=== PATIENT | female | born 1940 | race Caucasian/White ===

== ENCOUNTER → 2017-04-04 | Day surgery (SDC) | payer OTHER, MEDICARE ==
--- NOTE | 2017-04-03 12:47 | Diagnostic Imaging Report ---
PROCEDURE: X-RAY CHEST, TWO VIEWS COMPARISON: None. INDICATIONS: PREOPERATIVE CHEST XRAY FOR LEFT ELBOW SURGERY FINDINGS: The lungs are hyperinflated with flattening of the hemidiaphragms and increased AP diameter of the chest. Biapical pleural-parenchymal scar. No consolidation, pleural effusion, or pneumothorax. Tortuosity and atherosclerotic calcification of the thoracic aorta. Normal heart size. No pulmonary edema. No acute osseous abnormality. CONCLUSION: Pulmonary hyperinflation compatible with COPD. Biapical scar. No acute cardiopulmonary abnormality. Dictated by: Nikko Aranda M.D. on 04/03/2017 at 12:55 Electronically approved by: Nikko Aranda M.D. on 04/03/2017 at 12:55
[2017-04-03 12:56] LABS: BASOPHILS % 0.1 % (0.0-1.0); EOSINOPHILS % 0.5 % (0.0-6.0); HEMATOCRIT 34.4 % (34.2-44.1); HEMOGLOBIN 11.3 g/dL (12.0-16.0); LYMPHOCYTES # (AUTO) 1.2 (1.0-3.2); LYMPHOCYTES % 15.5 % (18.0-39.1); MEAN CORPUSCULAR HEMOGLOBIN 29.6 pg (28-32); MEAN CORPUSCULAR HGB CONC 32.8 g/dL (31-35); MEAN CORPUSCULAR VOLUME 90.1 fL (81-99); MONOCYTES # (AUTO) 0.8 (0.2-0.8); MONOCYTES % 9.9 % (4.4-11.3); NEUTROPHILS # (AUTO) 5.6 (2.1-6.9); NEUTROPHILS % 73.7 % (38.7-80.0); PLATELET COUNT 142 x10e3/uL (140-360); RED BLOOD COUNT 3.82 x10e6/uL (3.6-5.1); RED CELL DISTRIBUTION WIDTH 13.7 % (11.7-14.4)
[~2017-04-04] MED LIST: ASPIRIN325 MG PO; BACITRACIN 50,000 UNIT VIAL ONE; BUPIVACAINE 0.25%/EPI 30ML SDV INJ ONE; CLINDAMYCIN PHOS 900MG/ D5W 50 50 ML IV ONE; CRESTOR10 MG PO; DEXAMETHASONE SOD PHOS INJ 4 MG/ML VIAL IV ONE; EPHEDRINE SULFATE INJ 50 MG/10 ML SYR IV ONE; EPINEPHRINE HCL INJ 1 MG/ML AMP ONE; FENTANYL CITRATE/PF 100MCG/2 ML INJ ONE; LIDOCAINE 2%/ EPINEPHRINE 20ML MDV ONE; LIDOCAINE HCL 2% LOCAL INJ 5 ML SDV VIAL INJ ONE; METOPROLOL SUCC25 MG PO; MIDAZOLAM HCL 2 MG/2 ML VIAL ONE; MUPIROCIN 2% OINT 22 GM TUBE ONE; NORCO 10-325 T1 EACH PO; ONDANSETRON HCL INJ 2 MG/ML VIAL IV ONE; PRENATAL TABLE1 EAC1 PO; PROPOFOL IV EMULSION 10 MG/ML 20 ML VIAL IV ONE; ROPIVACAINE 0.5% 5 MG/ML 30 ML SDV ONE; SEVOFLURANE INHAL SOLN 250 ML PEN BTL INH ONE; ULTRAM50 MG PO
--- NOTE | 2017-04-04 13:36 | Operative Report ---
DATE OF PROCEDURE: April 04, 2017 PREOPERATIVE DIAGNOSIS: Left elbow olecranon process fracture. POSTOPERATIVE DIAGNOSIS: Left elbow olecranon process fracture. PROCEDURE: Open reduction and internal fixation left elbow olecranon process. ASSEMBLY LINE ROBOT OPERATOR: Gurpreet Zhao PA-C The patient was brought to the operating room for induction of anesthesia. Throughout this case, my PA's assistance was necessary for retraction of soft tissue and positioning of the extremity. This allows for efficient and technically successful execution of the operation and is considered medically necessary. INDICATIONS: The patient is a medically frail 76-year-old lady who has a markedly displaced left elbow olecranon process fracture. The findings and options have been discussed. Particular attention has been paid to discussing her soft tissue. She has marked bruising and thin skin. She is very thin and frail. She smokes a pack a day. However, the olecranon process is severely displaced. We have given this some time for the soft tissue to improve. We have encouraged Ensure and ceasing from smoking. She states she understands she is at high risk for soft tissue problems. She wishes to proceed with the surgery. DESCRIPTION OF PROCEDURE: The patient was brought to the operating room and placed under general anesthetic. She received prophylactic antibiotics in the holding area. She was positioned in the right lateral decubitus position with a beanbag. Her left upper extremity was prepped and draped in a sterile manner. A preoperative time-out was performed. The extremity was exsanguinated and a proximal tourniquet was inflated to 250 mmHg. An incision over the posterior aspect was made. A limited soft tissue dissection was performed to expose the fracture. The soft tissue was very carefully handled throughout the case. The fracture site was cleared of small amount of bone fragments and fracture hematoma. The joint was inspected and cleared of any loose bodies. A gentle reduction was performed with a reduction clamp. Jeffrey Rosas and DATE OF PROCEDURE: April 04, 2017 Nephew precontoured left-sided olecranon plate was placed over the fracture. With the reduction held in place, this was fixed with a combination of locking and compression screws. Intraoperative x-rays confirmed nice reduction of the fracture and positioning of the hardware. The wound was further irrigated. A few subcuticular Vicryl stitches were used to re-approximate the soft tissue. Multiple interrupted nylon stitches in combination with Mastisol and Steri-Strips were used to close the skin. A well-padded posterior splint was applied. She was extubated and transported to the recovery room in stable condition. Blood loss was minimal. The only blood loss was really the fracture hematoma. All needle and sponge counts were correct at the end of the surgery. Job#: [id number] AUDRA
== END | disposition home or self-care (01) ==
LOC: OR 07:09
PROVIDERS: ATTEND Specialist
DX: S52.032A Displaced fracture of olecranon process with intraarticular extension of left ulna, initial encounter for closed fracture (principal); I10 Essential (primary) hypertension; J44.9 Chronic obstructive pulmonary disease, unspecified; F17.210 Nicotine dependence, cigarettes, uncomplicated; W19.XXXA Unspecified fall, initial encounter; Y92.009 Unspecified place in unspecified non-institutional (private) residence as the place of occurrence of the external cause; Z01.810 Encounter for preprocedural cardiovascular examination; Z01.812 Encounter for preprocedural laboratory examination; Z01.818 Encounter for other preprocedural examination; Z79.82 Long term (current) use of aspirin
CPT/HCPCS: 24685; 36415; 71020; 85025; 93005; C1713 ×5; J0171; J1100; J2001 ×2; J2250; J2405; J2795; 76000

== ENCOUNTER 2017-06-08 11:51 | Outpatient (RCR) | payer MEDICARE, OTHER ==
[~2017-06-08 11:51] MED LIST changes: -BACITRACIN 50,000 UNIT VIAL ONE; -BUPIVACAINE 0.25%/EPI 30ML SDV INJ ONE; -CLINDAMYCIN PHOS 900MG/ D5W 50 50 ML IV ONE; -DEXAMETHASONE SOD PHOS INJ 4 MG/ML VIAL IV ONE; -EPHEDRINE SULFATE INJ 50 MG/10 ML SYR IV ONE; -EPINEPHRINE HCL INJ 1 MG/ML AMP ONE; -FENTANYL CITRATE/PF 100MCG/2 ML INJ ONE; -LIDOCAINE 2%/ EPINEPHRINE 20ML MDV ONE; -LIDOCAINE HCL 2% LOCAL INJ 5 ML SDV VIAL INJ ONE; -MIDAZOLAM HCL 2 MG/2 ML VIAL ONE; -MUPIROCIN 2% OINT 22 GM TUBE ONE; -ONDANSETRON HCL INJ 2 MG/ML VIAL IV ONE; -PROPOFOL IV EMULSION 10 MG/ML 20 ML VIAL IV ONE; -ROPIVACAINE 0.5% 5 MG/ML 30 ML SDV ONE; -SEVOFLURANE INHAL SOLN 250 ML PEN BTL INH ONE
== END 2017-06-14 ==
LOC: OT 11:51
PROVIDERS: ATTEND Specialist
DX: S52.032D Displaced fracture of olecranon process with intraarticular extension of left ulna, subsequent encounter for closed fracture with routine healing (principal)
CPT/HCPCS: 97010 ×5; 97110 ×6; 97139 ×2; 97165; G8987; G8988

== ENCOUNTER → 2017-12-26 | Day surgery (SDC) | payer MEDICARE, OTHER ==
[2017-12-25 09:30] LABS: BASOPHILS % 0.2 % (0.0-1.0); EOSINOPHILS # (AUTO) 0.1 (0.0-0.4); EOSINOPHILS % 1.5 % (0.0-6.0); HEMATOCRIT 44.1 % (34.2-44.1); HEMOGLOBIN 14.3 g/dL (12.0-16.0); LYMPHOCYTES # (AUTO) 1.8 (1.0-3.2); LYMPHOCYTES % 27.4 % (18.0-39.1); MEAN CORPUSCULAR HEMOGLOBIN 30.2 pg (28-32); MEAN CORPUSCULAR HGB CONC 32.4 g/dL (31-35); MEAN CORPUSCULAR VOLUME 93.2 fL (81-99); MONOCYTES # (AUTO) 0.7 (0.2-0.8); MONOCYTES % 10.1 % (4.4-11.3); NEUTROPHILS % 60.5 % (38.7-80.0); PLATELET COUNT 119 x10e3/uL (140-360); RED BLOOD COUNT 4.73 x10e6/uL (3.6-5.1); RED CELL DISTRIBUTION WIDTH 15.1 % (11.7-14.4)
[~2017-12-26] MED LIST changes: +BUPIVACAINE HCL 0.5% INJ 30 ML VIAL INJ ONE; +DESFLURANE 240 ML BTL INH ONE; +DEXAMETHASONE SOD PHOS INJ 4 MG/ML VIAL ONE; +FAMOTIDINE20 MG PO; +LIDOCAINE HCL 2% LOCAL INJ 5 ML SDV VIAL INJ ONE; +MIRTAZAPINE15 MG PO; +NEOSTIGMINE 1 MG/ML 10ML VIAL ONE; +ONDANSETRON HCL INJ 2 MG/ML VIAL ONE; +PANTOPRAZOLE SO40 MG PO; +PROPOFOL IV EMULSION 10 MG/ML 20 ML VIAL ONE; +ZOLOFT50 MG PO
[2017-12-26] MEDS: CLINDAMYCIN 600MG / 50ML 50 ML IV ONE (10:32)
[2017-12-26] MEDS: FENTANYL CITRATE/PF 100MCG/2 ML INJ ONE (12:39)
[2017-12-26 14:00] VITALS: BP 146/82
--- NOTE | 2017-12-26 15:52 | Operative Report ---
DATE OF PROCEDURE: December 26, 2017 CAPONIZER: Gurpreet Zhao PA-C. The patient was brought to the operating room for induction of anesthesia. Throughout this case, my PA's assistance was necessary for retraction of soft tissue and positioning of the extremity. This allows for efficient and technically successful execution of the operation and is considered medically necessary. PREOPERATIVE DIAGNOSIS: Complications of internal fixation, left elbow. POSTOPERATIVE DIAGNOSIS: Complications of internal fixation, left elbow. PROCEDURES: Hardware removal and irrigation debridement, left elbow. INDICATIONS: The patient is a 77-year-old lady who sustained an olecranon fracture about 8 months ago. She is very thin and does not weigh more than 90 pounds. The hardware is painful and prominent in the posterior aspect of her elbow. She has had occasional punctate draining sinus. We have discussed the findings and recommend a hardware removal with debridement. The risks and benefits were discussed. She stated she understood and wished to proceed. DESCRIPTION OF PROCEDURE: The patient was brought to the operating room and placed under general anesthetic. Her left upper extremity was prepped and draped in a sterile manner. A preoperative time out was performed. The extremity was exsanguinated and the proximal tourniquet was briefly inflated to 200 mmHg. The previous incision was opened. The hardware was easily exposed. A periosteal elevator was used to mobilize the soft tissue. All of the screws and the plate were removed. Intraoperative x-ray confirmed complete removal of hardware. The fibrinous membrane was sharply excised. The screw holes were gently debrided with a small curette. The wound was thoroughly irrigated and closed with interrupted nylon stitches. A sterile bandage was applied. She was placed into a posterior splint. She was extubated and transported to the recovery room in stable condition. Job#: [id number] ERIN
== END | disposition home or self-care (01) ==
LOC: OR 09:23
PROVIDERS: ATTEND Specialist
DX: T84.84XA Pain due to internal orthopedic prosthetic devices, implants and grafts, initial encounter (principal); T84.89XA Other specified complication of internal orthopedic prosthetic devices, implants and grafts, initial encounter; I10 Essential (primary) hypertension; I25.10 Atherosclerotic heart disease of native coronary artery without angina pectoris; R00.1 Bradycardia, unspecified; E78.00 Pure hypercholesterolemia, unspecified; F41.9 Anxiety disorder, unspecified; F17.210 Nicotine dependence, cigarettes, uncomplicated; Y83.8 Other surgical procedures as the cause of abnormal reaction of the patient, or of later complication, without mention of misadventure at the time of the procedure; Z88.0 Allergy status to penicillin; Z01.810 Encounter for preprocedural cardiovascular examination; Z01.812 Encounter for preprocedural laboratory examination; Z79.82 Long term (current) use of aspirin; Z95.5 Presence of coronary angioplasty implant and graft; Z85.3 Personal history of malignant neoplasm of breast; Z87.81 Personal history of (healed) traumatic fracture
CPT/HCPCS: 36415; 76000; 85025; 87071; 87075; 87205; 88300; 93005; J1100; J2001; J2405; J2710

== ENCOUNTER 2020-09-24 20:05 | Emergency (ER) | payer MEDICARE, OTHER ==
[~2020-09-24] VITALS: Ht 160 cm; Wt 41.3 kg
[~2020-09-24 20:05] MED LIST changes: -BUPIVACAINE HCL 0.5% INJ 30 ML VIAL INJ ONE; -DESFLURANE 240 ML BTL INH ONE; -DEXAMETHASONE SOD PHOS INJ 4 MG/ML VIAL ONE; -LIDOCAINE HCL 2% LOCAL INJ 5 ML SDV VIAL INJ ONE; -NEOSTIGMINE 1 MG/ML 10ML VIAL ONE; -ONDANSETRON HCL INJ 2 MG/ML VIAL ONE; -PROPOFOL IV EMULSION 10 MG/ML 20 ML VIAL ONE
[2020-09-24] MEDS ORDERED: DIPHTH/TETANUS/ACEL. PERTUSSIS 0.5 ML SYR IM ONE (20:45)
[2020-09-24] MEDS ORDERED: TETANUS/DIPHTHERIA TOX ADULT 0.5 ML SYR ONE (20:49)
== END 2020-09-24 21:31 | disposition home or self-care (01) ==
LOC: FSED 20:11
DX: S61.401A Unspecified open wound of right hand, initial encounter (principal); W22.09XA Striking against other stationary object, initial encounter; Y92.000 Kitchen of unspecified non-institutional (private) residence as the place of occurrence of the external cause; I10 Essential (primary) hypertension; E11.9 Type 2 diabetes mellitus without complications; J44.9 Chronic obstructive pulmonary disease, unspecified; Z99.81 Dependence on supplemental oxygen; I73.9 Peripheral vascular disease, unspecified; I25.10 Atherosclerotic heart disease of native coronary artery without angina pectoris; E78.5 Hyperlipidemia, unspecified
CPT/HCPCS: 90714; 99282

== ENCOUNTER 2021-01-07 17:05 | Inpatient (IN) | payer MEDICARE ==
[~2021-01-07] VITALS: Ht 157.5 cm; Wt 46.4 kg
[2021-01-07] MEDS ORDERED: SODIUM CHLORIDE 0.9% 1000ML 1,000 ML ONE (18:30)
[2021-01-07 19:07] LABS: BASOPHILS % 0.2 % (0.0-1.0); EOSINOPHILS % 0.1 % (0.0-6.0); HEMATOCRIT 39.3 % (34.2-44.1); HEMOGLOBIN 12.6 g/dL (12.0-16.0); LYMPHOCYTES # (AUTO) 0.4 (1.0-3.2); LYMPHOCYTES % 3.5 % (18.0-39.1); MEAN CORPUSCULAR HEMOGLOBIN 29.4 pg (28-32); MEAN CORPUSCULAR HGB CONC 32.1 g/dL (31-35); MEAN CORPUSCULAR VOLUME 91.8 fL (81-99); MONOCYTES # (AUTO) 0.4 (0.2-0.8); MONOCYTES % 3.5 % (4.4-11.3); NEUTROPHILS # (AUTO) 11.3 (2.1-6.9); PLATELET COUNT 131 x10e3/uL (140-360); RED BLOOD COUNT 4.28 x10e6/uL (3.6-5.1); RED CELL DISTRIBUTION WIDTH 14.3 % (11.7-14.4)
[2021-01-07 19:18] LABS: ALBUMIN 2.6 g/dL (3.5-5.0); ALBUMIN/GLOBULIN RATIO 0.6 (0.8-2.0); CALCIUM 7.8 mg/dL (8.4-10.2); CREATININE, SERUM 4.1 mg/dL (0.57-1.11)
[2021-01-07] MEDS ORDERED: SODIUM CHLORIDE 0.9% 1000ML 1,000 ML IV SCH ×2 (19:30→19:45)
[2021-01-07 20:39] LABS: LYMPHOCYTES % (MANUAL) 1 % (19-48); MONOCYTES % (MANUAL) 4 % (3.4-9.0); NEUTROPHILS % (MANUAL) 95 % (40-74); PLATELET ESTIMATE ADEQUATE; PLATELET MORPHOLOGY COMMENT RARE EDTA CLUMPING; RBC MORPHOLOGY COMMENT NORMAL
[2021-01-07] MEDS: SODIUM CHLORIDE 0.9% 1000ML 1,000 ML IV SCH (21:00)
[2021-01-07] MEDS ORDERED: DILTIAZEM HCL 5 MG/ML 5 ML VIAL IV STA (22:15)
[2021-01-07] MEDS ORDERED: DILTIAZEM HCL VIAL 5 ML ONE (22:29)
[2021-01-08] VITALS (8 sets, daily range): BP systolic 105–126; BP diastolic 60–76
[2021-01-08] MEDS: SODIUM CHLORIDE 0.9% 1000ML 1,000 ML IV SCH ×2 (06:10→12:00)
[2021-01-08 06:35] LABS: BASOPHILS % 0.1 % (0.0-1.0); HEMATOCRIT 36.5 % (34.2-44.1); HEMOGLOBIN 11.6 g/dL (12.0-16.0); LYMPHOCYTES # (AUTO) 0.2 (1.0-3.2); LYMPHOCYTES % 3.1 % (18.0-39.1); MEAN CORPUSCULAR HEMOGLOBIN 29.4 pg (28-32); MEAN CORPUSCULAR HGB CONC 31.8 g/dL (31-35); MEAN CORPUSCULAR VOLUME 92.6 fL (81-99); MONOCYTES # (AUTO) 0.3 (0.2-0.8); NEUTROPHILS # (AUTO) 6.9 (2.1-6.9); NEUTROPHILS % 92.3 % (38.7-80.0); PLATELET COUNT 101 x10e3/uL (140-360); RED BLOOD COUNT 3.94 x10e6/uL (3.6-5.1)
[2021-01-08 06:51] LABS: INR 1.13; PROTHROMBIN TIME 14.7 seconds (11.9-14.5)
[2021-01-08 07:08] LABS: ALBUMIN 2.1 g/dL (3.5-5.0); ALBUMIN/GLOBULIN RATIO 0.7 (0.8-2.0); ANION GAP 19.8 mmol/L (8-16); CREATININE, SERUM 4.28 mg/dL (0.57-1.11); MAGNESIUM 2.3 MG/DL (1.3-2.1); PHOSPHORUS 6.2 MG/DL (2.3-4.7); POTASSIUM 4.8 mmol/L (3.5-5.1)
[2021-01-08 07:10] LABS: CHOL/HDL RATIO 2.4 (3.0-3.6)
[2021-01-08 07:12] LABS: CALCIUM 6.2 mg/dL (8.4-10.2)
[2021-01-08 07:29] LABS: THYROID STIMULATING HORMONE 1.81 uIU/mL (0.350-4.940)
[2021-01-08 08:08] LABS: BAND NEUTROPHILS % (MANUAL) 2 %; LYMPHOCYTES % (MANUAL) 5 % (19-48); MONOCYTES % (MANUAL) 3 % (3.4-9.0); NEUTROPHILS % (MANUAL) 90 % (40-74); PLATELET ESTIMATE SLIGHTLY DECREASED
[2021-01-08 08:09] LABS: PLATELET MORPHOLOGY COMMENT FEW LARGE; RBC MORPHOLOGY COMMENT NORMAL
[2021-01-08] MEDS: PANTOPRAZOLE SOD 40 MG TABEC PO SCH (08:46)
[2021-01-08] MEDS ORDERED: METOPROLOL SUCCINATE 25 MG TAB XL PO SCH (09:00)
[2021-01-08] MEDS ORDERED: DIATRIZOATE MEGL/DIATRIZOA SOD 30 ML BTL PO ONE (11:51)
[2021-01-08] MEDS: ACETAMINOPHEN 325 MG TAB PO PRN (12:08)
[2021-01-08] MEDS ORDERED: CALCIUM GLUCONATE 10% INJ 4.65 MEQ in SODIUM CHLORIDE 0.9% 50ML 50 ML IV ONE ×2 (13:00→16:00)
[2021-01-08] MEDS: METOPROLOL SUCCINATE 25 MG TAB XL PO SCH (14:32)
[2021-01-08] MEDS: MEROPENEM 1 GM in SODIUM CHLORIDE 0.9% 100 ML IV SCH (14:32)
[2021-01-08] MEDS: ASCORBIC ACID 500 MG TAB PO SCH (14:33)
[2021-01-08] MEDS: DEXAMETHASONE SOD PHOS 10 MG/1 ML VIAL IV SCH (14:52)
[2021-01-08] MEDS ORDERED: CALCIUM CARBONATE 500 MG CHEWABLE TABS PO SCH (15:00)
[2021-01-08] MEDS ORDERED: APIXAB 2.5 MG TABLET PO SCH (17:00)
[2021-01-08] MEDS ORDERED: HEPARIN 25,000 UNIT 500 UNIT in DEXTROSE 5% 250ML 250 ML IV SCH (17:15)
[2021-01-08] MEDS ORDERED: HEPARIN SOD (PORCINE) 5,000 UNIT/ML VIAL IV ONE (17:15)
[2021-01-08] MEDS ORDERED: SODIUM CHLORIDE 0.9% 1000ML 1,000 ML IV ONE (17:30)
[2021-01-08 18:52] LABS: CLARITY,URINE SL CLOUDY (CLEAR); COLOR,URINE STRAW (YELLOW); KETONES,URINE NEGATIVE (NEGATIVE); LEUKOCYTE ESTERASE ,URINE NEGATIVE (NEGATIVE); NITRITE,URINE NEGATIVE (NEGATIVE); PROTEIN,URINE DIPSTICK 2+ (NEGATIVE); URINE UROBILINOGEN 0.2 mg/dL (0.2 - 1)
[2021-01-08 19:10] LABS: AMORPHOUS SEDIMENT,URINE MANY (FEW); BACTERIA,URINE MODERATE /HPF; EPITHELIAL CELLS,URINE MODERATE /LPF; RENAL EPITHELIAL CELLS,URINE RARE
[2021-01-08] MEDS ORDERED: ENOXAPARIN SOD INJ 40 MG/0.4 ML SYR SC SCH (21:00)
[2021-01-08] MEDS: METRONIDAZOLE 500 MG TAB PO SCH (21:00)
[2021-01-08] MEDS: CALCIUM CARBONATE 500 MG CHEWABLE TABS PO SCH (21:01)
[2021-01-08] MEDS ORDERED: SODIUM CHLORIDE 0.45% 1,000 ML IV ONE (23:15)
[2021-01-08] MEDS ORDERED: SODIUM BICARBONATE 8.4% 50 ML VIAL IV ONE (23:30)
[2021-01-08] MEDS ORDERED: SODIUM BICARBONATE 8.4% 50 ML in SODIUM CHLORIDE 0.45% 1,000 ML IV SCH (23:45)
[2021-01-09] VITALS (7 sets, daily range): BP systolic 116–143; BP diastolic 66–93
[2021-01-09 06:43] LABS: ALBUMIN 1.9 g/dL (3.5-5.0); MAGNESIUM 2.3 MG/DL (1.3-2.1)
[2021-01-09 07:39] LABS: BASOPHILS % 0.1 % (0.0-1.0); HEMATOCRIT 36.3 % (34.2-44.1); HEMOGLOBIN 11.4 g/dL (12.0-16.0); LYMPHOCYTES # (AUTO) 0.1 (1.0-3.2); LYMPHOCYTES % 1.4 % (18.0-39.1); MEAN CORPUSCULAR HEMOGLOBIN 29.7 pg (28-32); MEAN CORPUSCULAR HGB CONC 31.4 g/dL (31-35); MEAN CORPUSCULAR VOLUME 94.5 fL (81-99); MONOCYTES # (AUTO) 0.3 (0.2-0.8); MONOCYTES % 4.2 % (4.4-11.3); NEUTROPHILS # (AUTO) 7.5 (2.1-6.9); NEUTROPHILS % 93.8 % (38.7-80.0); RED BLOOD COUNT 3.84 x10e6/uL (3.6-5.1); RED CELL DISTRIBUTION WIDTH 14.3 % (11.7-14.4)
[2021-01-09 08:10] LABS: PLATELET COUNT 129 x10e3/uL (140-360)
[2021-01-09] MEDS: PANTOPRAZOLE SOD 40 MG TABEC PO SCH (08:43)
[2021-01-09] MEDS: METRONIDAZOLE 500 MG TAB PO SCH ×2 (08:43→20:02)
[2021-01-09] MEDS: DEXAMETHASONE SOD PHOS 10 MG/1 ML VIAL IV SCH (08:43)
[2021-01-09] MEDS: CHOLECALCIFEROL 400 UNIT TAB PO SCH (08:44)
[2021-01-09] MEDS: ZINC SULFATE 220 MG CAP PO SCH (08:44)
[2021-01-09] MEDS: METOPROLOL SUCCINATE 25 MG TAB XL PO SCH ×2 (08:44→16:14)
[2021-01-09] MEDS: CALCIUM CARBONATE 500 MG CHEWABLE TABS PO SCH ×3 (08:44→20:02)
[2021-01-09] MEDS ORDERED: ZINC SULFATE 50 MG CAP PO SCH (09:00)
[2021-01-09] MEDS: ASCORBIC ACID 500 MG TAB PO SCH ×2 (09:41→16:14)
[2021-01-09] MEDS: CHOLECALCIFEROL 1,000 UNIT TAB PO SCH (09:41)
[2021-01-09] MEDS: SODIUM BICARBONATE 8.4% 150 ML in STERILE WATER IV SOLN 1,000 ML IV SCH (10:28)
[2021-01-09] MEDS: MEROPENEM 1 GM in SODIUM CHLORIDE 0.9% 100 ML IV SCH (14:17)
[2021-01-09] MEDS: ENOXAPARIN SOD INJ 40 MG/0.4 ML SYR SC SCH (16:15)
[2021-01-10] VITALS (7 sets, daily range): BP systolic 123–144; BP diastolic 63–85
[2021-01-10] MEDS: SODIUM BICARBONATE 8.4% 150 ML in STERILE WATER IV SOLN 1,000 ML IV SCH (03:24)
[2021-01-10] MEDS: ENOXAPARIN SOD INJ 40 MG/0.4 ML SYR SC SCH ×2 (03:24→14:24)
[2021-01-10 06:55] LABS: BASOPHILS % 0.1 % (0.0-1.0); HEMATOCRIT 31.8 % (34.2-44.1); HEMOGLOBIN 10.6 g/dL (12.0-16.0); LYMPHOCYTES # (AUTO) 0.2 (1.0-3.2); LYMPHOCYTES % 1.5 % (18.0-39.1); MEAN CORPUSCULAR HEMOGLOBIN 29.4 pg (28-32); MEAN CORPUSCULAR HGB CONC 33.3 g/dL (31-35); MEAN CORPUSCULAR VOLUME 88.1 fL (81-99); MONOCYTES # (AUTO) 0.4 (0.2-0.8); MONOCYTES % 4.1 % (4.4-11.3); NEUTROPHILS % 93.5 % (38.7-80.0); PLATELET COUNT 137 x10e3/uL (140-360); RED BLOOD COUNT 3.61 x10e6/uL (3.6-5.1); RED CELL DISTRIBUTION WIDTH 13.9 % (11.7-14.4)
[2021-01-10 07:15] LABS: ALBUMIN 1.9 g/dL (3.5-5.0); ALBUMIN/GLOBULIN RATIO 0.6 (0.8-2.0); ANION GAP 20.7 mmol/L (8-16); CREATININE, SERUM 5.67 mg/dL (0.57-1.11); POTASSIUM 4.7 mmol/L (3.5-5.1)
[2021-01-10] MEDS: DEXAMETHASONE SOD PHOS 10 MG/1 ML VIAL IV SCH (10:49)
[2021-01-10] MEDS: METRONIDAZOLE 500 MG TAB PO SCH ×2 (10:49→20:07)
[2021-01-10] MEDS: PANTOPRAZOLE SOD 40 MG TABEC PO SCH (10:49)
[2021-01-10] MEDS: ASCORBIC ACID 500 MG TAB PO SCH ×2 (10:50→16:47)
[2021-01-10] MEDS: CHOLECALCIFEROL 1,000 UNIT TAB PO SCH (10:50)
[2021-01-10] MEDS: CALCIUM CARBONATE 500 MG CHEWABLE TABS PO SCH ×3 (10:50→20:07)
[2021-01-10] MEDS: METOPROLOL SUCCINATE 25 MG TAB XL PO SCH ×2 (10:50→16:47)
[2021-01-10] MEDS: ZINC SULFATE 220 MG CAP PO SCH (10:50)
[2021-01-10] MEDS: CHOLECALCIFEROL 400 UNIT TAB PO SCH (10:50)
[2021-01-10 12:04] LABS: BAND NEUTROPHILS % (MANUAL) 1 %; LYMPHOCYTES % (MANUAL) 1 % (19-48); MONOCYTES % (MANUAL) 3 % (3.4-9.0); NEUTROPHILS % (MANUAL) 95 % (40-74)
[2021-01-10 12:05] LABS: PLATELET ESTIMATE ADEQUATE; PLATELET MORPHOLOGY COMMENT FEW EDTA CLUMPING; RBC MORPHOLOGY COMMENT NORMAL
[2021-01-10] MEDS: MEROPENEM 1 GM in SODIUM CHLORIDE 0.9% 100 ML IV SCH (14:24)
[2021-01-10] MEDS ORDERED: HEPARIN 25,000 UNIT DRIP IV ONE (19:33)
[2021-01-10 19:36] LABS: BASOPHILS % 0.2 % (0.0-1.0); HEMATOCRIT 36.8 % (34.2-44.1); HEMOGLOBIN 11.9 g/dL (12.0-16.0); LYMPHOCYTES # (AUTO) 0.2 (1.0-3.2); LYMPHOCYTES % 1.5 % (18.0-39.1); MEAN CORPUSCULAR HEMOGLOBIN 29.5 pg (28-32); MEAN CORPUSCULAR HGB CONC 32.3 g/dL (31-35); MEAN CORPUSCULAR VOLUME 91.1 fL (81-99); MONOCYTES # (AUTO) 0.4 (0.2-0.8); MONOCYTES % 3.1 % (4.4-11.3); NEUTROPHILS # (AUTO) 10.6 (2.1-6.9); NEUTROPHILS % 94.2 % (38.7-80.0); PLATELET COUNT 153 x10e3/uL (140-360); RED BLOOD COUNT 4.04 x10e6/uL (3.6-5.1); RED CELL DISTRIBUTION WIDTH 14.1 % (11.7-14.4)
[2021-01-10 19:37] LABS: INR 1.16
[2021-01-10 19:57] LABS: MONOCYTES % (MANUAL) 8 % (3.4-9.0); MYELOCYTES % (MANUAL) 1 % (0-0); NEUTROPHILS % (MANUAL) 91 % (40-74)
[2021-01-10 19:58] LABS: PLATELET ESTIMATE ADEQUATE; PLATELET MORPHOLOGY COMMENT NORMAL
[2021-01-10] MEDS: HEPARIN 25,000 UNIT 500 UNIT in DEXTROSE 5% 250ML 250 ML IV SCH (20:04)
[2021-01-11] VITALS (7 sets, daily range): BP systolic 110–174; BP diastolic 63–84
[2021-01-11] MEDS: HEPARIN 25,000 UNIT 500 UNIT in DEXTROSE 5% 250ML 250 ML IV SCH (02:50)
[2021-01-11] MEDS ORDERED: ENOXAPARIN SOD INJ 40 MG/0.4 ML SYR SC SCH (06:00)
[2021-01-11 07:04] LABS: ANION GAP 20.2 mmol/L (8-16); CALCIUM 7.6 mg/dL (8.4-10.2); CREATININE, SERUM 6.3 mg/dL (0.57-1.11); MAGNESIUM 2.2 MG/DL (1.3-2.1); PHOSPHORUS 8.3 MG/DL (2.3-4.7); POTASSIUM 5.2 mmol/L (3.5-5.1)
[2021-01-11] MEDS: PANTOPRAZOLE SOD 40 MG TABEC PO SCH (07:50)
[2021-01-11 08:59] LABS: BASOPHILS % 0.2 % (0.0-1.0); HEMATOCRIT 39.1 % (34.2-44.1); HEMOGLOBIN 12.7 g/dL (12.0-16.0); LYMPHOCYTES # (AUTO) 0.3 (1.0-3.2); LYMPHOCYTES % 2.7 % (18.0-39.1); MEAN CORPUSCULAR HEMOGLOBIN 29.7 pg (28-32); MEAN CORPUSCULAR HGB CONC 32.5 g/dL (31-35); MEAN CORPUSCULAR VOLUME 91.4 fL (81-99); MONOCYTES # (AUTO) 0.7 (0.2-0.8); MONOCYTES % 5.3 % (4.4-11.3); NEUTROPHILS # (AUTO) 11.2 (2.1-6.9); NEUTROPHILS % 90.7 % (38.7-80.0); PLATELET COUNT 154 x10e3/uL (140-360); RED BLOOD COUNT 4.28 x10e6/uL (3.6-5.1); RED CELL DISTRIBUTION WIDTH 14.3 % (11.7-14.4)
[2021-01-11] MEDS: METRONIDAZOLE 500 MG TAB PO SCH (09:00)
[2021-01-11] MEDS: ZINC SULFATE 220 MG CAP PO SCH (09:17)
[2021-01-11] MEDS: ASCORBIC ACID 500 MG TAB PO SCH ×3 (09:17→18:00)
[2021-01-11] MEDS: METOPROLOL SUCCINATE 25 MG TAB XL PO SCH ×3 (09:17→17:30)
[2021-01-11] MEDS: CALCIUM CARBONATE 500 MG CHEWABLE TABS PO SCH ×3 (09:17→21:13)
[2021-01-11] MEDS: CHOLECALCIFEROL 1,000 UNIT TAB PO SCH (09:17)
[2021-01-11] MEDS: CHOLECALCIFEROL 400 UNIT TAB PO SCH (09:17)
[2021-01-11] MEDS: DEXAMETHASONE SOD PHOS 10 MG/1 ML VIAL IV SCH (09:17)
[2021-01-11] MEDS ORDERED: HEPARIN SOD (PORCINE) 1000 UNIT/ML SDV ONE (13:56)
[2021-01-11] MEDS ORDERED: LIDOCAINE HCL 1% LOCAL INJ 20 ML VIAL ONE (14:16)
[2021-01-11] MEDS: CHOLESTYRAMINE 4 GM PACKET PO SCH (17:30)
[2021-01-11] MEDS ORDERED: SODIUM CHLORIDE 0.9% 1000ML 1,000 ML ONE (17:52)
[2021-01-11] MEDS ORDERED: MANNITOL 25% 12.5GM/50 ML VIAL IV PRN (18:15)
[2021-01-11] MEDS ORDERED: HEPARIN SOD (PORCINE) 1000 UNIT/ML SDV IV PRN ×2 (18:15→18:30)
[2021-01-11] MEDS ORDERED: SODIUM CHLORIDE 0.9% 1000ML 2,000 ML IV PRN (18:15)
[2021-01-11] MEDS: LORAZEPAM INJ 2 MG/ML VIAL IV PRN (21:57)
[2021-01-12] MEDS: HEPARIN 25,000 UNIT 500 UNIT in DEXTROSE 5% 250ML 250 ML IV SCH (02:37)
[2021-01-12 04:50] VITALS: BP 113/74
[2021-01-12 04:50] LABS: BASOPHILS % 0.1 % (0.0-1.0); HEMATOCRIT 34.8 % (34.2-44.1); HEMOGLOBIN 11.4 g/dL (12.0-16.0); LYMPHOCYTES # (AUTO) 0.4 (1.0-3.2); MEAN CORPUSCULAR HEMOGLOBIN 29.5 pg (28-32); MEAN CORPUSCULAR HGB CONC 32.8 g/dL (31-35); MEAN CORPUSCULAR VOLUME 89.9 fL (81-99); MONOCYTES # (AUTO) 0.8 (0.2-0.8); MONOCYTES % 7.2 % (4.4-11.3); NEUTROPHILS # (AUTO) 9.3 (2.1-6.9); NEUTROPHILS % 87.1 % (38.7-80.0); PLATELET COUNT 124 x10e3/uL (140-360); RED BLOOD COUNT 3.87 x10e6/uL (3.6-5.1); RED CELL DISTRIBUTION WIDTH 14.1 % (11.7-14.4)
[2021-01-12 05:08] LABS: ANION GAP 18.9 mmol/L (8-16); CALCIUM 8.3 mg/dL (8.4-10.2); CREATININE, SERUM 5.48 mg/dL (0.57-1.11); POTASSIUM 4.9 mmol/L (3.5-5.1)
[2021-01-12] MEDS: PANTOPRAZOLE SOD 40 MG TABEC PO SCH (07:30)
[2021-01-12 08:00] VITALS: BP 135/80
[2021-01-12 08:09] VITALS: BP 126/108
[2021-01-12] MEDS ORDERED: SODIUM CHLORIDE 0.9% 1000ML 1,000 ML ONE (08:37)
[2021-01-12] MEDS: CHOLESTYRAMINE 4 GM PACKET PO SCH ×2 (09:00→17:00)
[2021-01-12] MEDS: ZINC SULFATE 220 MG CAP PO SCH (09:00)
[2021-01-12] MEDS: CALCIUM CARBONATE 500 MG CHEWABLE TABS PO SCH ×3 (09:00→21:00)
[2021-01-12] MEDS: CHOLECALCIFEROL 1,000 UNIT TAB PO SCH (09:00)
[2021-01-12] MEDS: DEXAMETHASONE SOD PHOS 10 MG/1 ML VIAL IV SCH (09:00)
[2021-01-12] MEDS: CHOLECALCIFEROL 400 UNIT TAB PO SCH (09:00)
[2021-01-12] MEDS: METOPROLOL SUCCINATE 25 MG TAB XL PO SCH ×2 (09:00→17:00)
[2021-01-12] MEDS: AMLODIPINE BESYLATE 5 MG TAB PO SCH (10:15)
[2021-01-12] MEDS: LORAZEPAM INJ 2 MG/ML VIAL IV PRN (10:30)
[2021-01-12] MEDS ORDERED: LORAZEPAM INJ 2 MG/ML VIAL IV ONE (11:45)
[2021-01-12 11:58] VITALS: BP 101/72
[2021-01-12 16:00] VITALS: BP 100/61
[2021-01-12] MEDS: ASCORBIC ACID 500 MG TAB PO SCH (17:00)
[2021-01-12 20:00] VITALS: BP 99/77
[2021-01-13] VITALS (7 sets, daily range): BP systolic 93–133; BP diastolic 54–82
[2021-01-13 05:57] LABS: ANION GAP 20.3 mmol/L (8-16); CALCIUM 8.1 mg/dL (8.4-10.2); CREATININE, SERUM 4.83 mg/dL (0.57-1.11); POTASSIUM 4.3 mmol/L (3.5-5.1)
[2021-01-13 07:38] LABS: BASOPHILS % 0.2 % (0.0-1.0); EOSINOPHILS # (AUTO) 0.1 (0.0-0.4); EOSINOPHILS % 0.4 % (0.0-6.0); HEMOGLOBIN 10.9 g/dL (12.0-16.0); LYMPHOCYTES # (AUTO) 0.5 (1.0-3.2); LYMPHOCYTES % 4.5 % (18.0-39.1); MEAN CORPUSCULAR HEMOGLOBIN 29.5 pg (28-32); MEAN CORPUSCULAR HGB CONC 32.1 g/dL (31-35); MEAN CORPUSCULAR VOLUME 91.9 fL (81-99); MONOCYTES % 8.1 % (4.4-11.3); NEUTROPHILS % 85.9 % (38.7-80.0); PLATELET COUNT 116 x10e3/uL (140-360); RED CELL DISTRIBUTION WIDTH 14.4 % (11.7-14.4)
[2021-01-13] MEDS: METOPROLOL SUCCINATE 25 MG TAB XL PO SCH ×2 (09:00→16:13)
[2021-01-13] MEDS: AMLODIPINE BESYLATE 5 MG TAB PO SCH (09:00)
[2021-01-13] MEDS: CHOLESTYRAMINE 4 GM PACKET PO SCH ×2 (09:54→16:13)
[2021-01-13] MEDS: PANTOPRAZOLE SOD 40 MG TABEC PO SCH (09:54)
[2021-01-13] MEDS: CALCIUM CARBONATE 500 MG CHEWABLE TABS PO SCH ×3 (09:54→20:30)
[2021-01-13] MEDS: DEXAMETHASONE SOD PHOS 10 MG/1 ML VIAL IV SCH (09:54)
[2021-01-13] MEDS: CHOLECALCIFEROL 400 UNIT TAB PO SCH (09:55)
[2021-01-13] MEDS: ASCORBIC ACID 500 MG TAB PO SCH ×2 (09:55→16:13)
[2021-01-13] MEDS: ZINC SULFATE 220 MG CAP PO SCH (09:55)
[2021-01-13] MEDS: CHOLECALCIFEROL 1,000 UNIT TAB PO SCH (09:55)
[2021-01-13] MEDS: ACETAMINOPHEN 325 MG TAB PO PRN (16:09)
[2021-01-13] MEDS ORDERED: APIXAB 2.5 MG TABLET PO SCH (17:00)
[2021-01-13] MEDS ORDERED: HEPARIN SOD (PORCINE) 5,000 UNIT/ML VIAL SC SCH (21:00)
[2021-01-14] VITALS (9 sets, daily range): BP systolic 116–125; BP diastolic 75–90
[2021-01-14] MEDS: TRAMADOL HCL 50 MG TAB PO PRN (02:30)
[2021-01-14 05:47] LABS: BASOPHILS % 0.1 % (0.0-1.0); HEMATOCRIT 32.4 % (34.2-44.1); HEMOGLOBIN 10.4 g/dL (12.0-16.0); LYMPHOCYTES # (AUTO) 0.4 (1.0-3.2); LYMPHOCYTES % 3.7 % (18.0-39.1); MEAN CORPUSCULAR HEMOGLOBIN 29.5 pg (28-32); MEAN CORPUSCULAR HGB CONC 32.1 g/dL (31-35); MEAN CORPUSCULAR VOLUME 91.8 fL (81-99); MONOCYTES # (AUTO) 0.7 (0.2-0.8); MONOCYTES % 7.1 % (4.4-11.3); NEUTROPHILS # (AUTO) 8.6 (2.1-6.9); NEUTROPHILS % 88.3 % (38.7-80.0); PLATELET COUNT 124 x10e3/uL (140-360); RED BLOOD COUNT 3.53 x10e6/uL (3.6-5.1); RED CELL DISTRIBUTION WIDTH 13.9 % (11.7-14.4)
[2021-01-14 05:49] LABS: INR 0.99; PROTHROMBIN TIME 13.3 seconds (11.9-14.5)
[2021-01-14 06:10] LABS: ALBUMIN 1.9 g/dL (3.5-5.0); ALBUMIN/GLOBULIN RATIO 0.6 (0.8-2.0); ANION GAP 19.8 mmol/L (8-16); CALCIUM 8.5 mg/dL (8.4-10.2); CREATININE, SERUM 6.16 mg/dL (0.57-1.11); POTASSIUM 4.8 mmol/L (3.5-5.1)
[2021-01-14] MEDS: PANTOPRAZOLE SOD 40 MG TABEC PO SCH (07:30)
[2021-01-14] MEDS ORDERED: SODIUM CHLORIDE 0.9% 1000ML 1,000 ML ONE (07:39)
[2021-01-14] MEDS: CHOLECALCIFEROL 1,000 UNIT TAB PO SCH (09:00)
[2021-01-14] MEDS: CALCIUM CARBONATE 500 MG CHEWABLE TABS PO SCH ×3 (09:00→21:00)
[2021-01-14] MEDS: ASCORBIC ACID 500 MG TAB PO SCH ×2 (09:00→17:00)
[2021-01-14] MEDS: METOPROLOL SUCCINATE 25 MG TAB XL PO SCH ×2 (09:00→17:00)
[2021-01-14] MEDS: CHOLESTYRAMINE 4 GM PACKET PO SCH ×2 (09:00→17:00)
[2021-01-14] MEDS: CHOLECALCIFEROL 400 UNIT TAB PO SCH (09:00)
[2021-01-14] MEDS: DEXAMETHASONE SOD PHOS 10 MG/1 ML VIAL IV SCH (09:00)
[2021-01-14] MEDS: ZINC SULFATE 220 MG CAP PO SCH (09:00)
[2021-01-14] MEDS ORDERED: HEPARIN SOD (PORCINE) 1000 UNIT/ML SDV ONE (14:29)
[2021-01-14] MEDS ORDERED: FENTANYL CITRATE/PF 100MCG/2 ML INJ ONE (14:30)
[2021-01-14] MEDS ORDERED: LIDOCAINE HCL 1% LOCAL INJ 20 ML VIAL ONE (14:45)
[2021-01-15] VITALS (7 sets, daily range): BP systolic 105–114; BP diastolic 66–78
[2021-01-15] MEDS: TRAMADOL HCL 50 MG TAB PO PRN ×2 (05:40→18:47)
[2021-01-15] MEDS: CHOLESTYRAMINE 4 GM PACKET PO SCH ×2 (09:22→16:30)
[2021-01-15] MEDS: PANTOPRAZOLE SOD 40 MG TABEC PO SCH (09:22)
[2021-01-15] MEDS: DEXAMETHASONE SOD PHOS 10 MG/1 ML VIAL IV SCH (09:22)
[2021-01-15] MEDS: CALCIUM CARBONATE 500 MG CHEWABLE TABS PO SCH ×3 (09:23→20:23)
[2021-01-15] MEDS: METOPROLOL SUCCINATE 25 MG TAB XL PO SCH ×2 (09:23→16:30)
[2021-01-15] MEDS: CHOLECALCIFEROL 400 UNIT TAB PO SCH (09:23)
[2021-01-15] MEDS: ASCORBIC ACID 500 MG TAB PO SCH ×2 (09:23→16:30)
[2021-01-15] MEDS: CHOLECALCIFEROL 1,000 UNIT TAB PO SCH (09:23)
[2021-01-15] MEDS: ZINC SULFATE 220 MG CAP PO SCH (09:23)
[2021-01-15] MEDS ORDERED: HYDROXYZINE HCL 25 MG TAB PO PRN (18:00)
[2021-01-16 04:05] VITALS: BP 114/80
[2021-01-16 04:19] LABS: BASOPHILS % 0.2 % (0.0-1.0); HEMATOCRIT 27.7 % (34.2-44.1); HEMOGLOBIN 8.9 g/dL (12.0-16.0); LYMPHOCYTES # (AUTO) 0.4 (1.0-3.2); LYMPHOCYTES % 3.2 % (18.0-39.1); MEAN CORPUSCULAR HEMOGLOBIN 29.5 pg (28-32); MEAN CORPUSCULAR HGB CONC 32.1 g/dL (31-35); MEAN CORPUSCULAR VOLUME 91.7 fL (81-99); MONOCYTES # (AUTO) 0.6 (0.2-0.8); MONOCYTES % 5.1 % (4.4-11.3); NEUTROPHILS # (AUTO) 10.7 (2.1-6.9); NEUTROPHILS % 90.7 % (38.7-80.0); PLATELET COUNT 66 x10e3/uL (140-360); RED BLOOD COUNT 3.02 x10e6/uL (3.6-5.1); RED CELL DISTRIBUTION WIDTH 13.6 % (11.7-14.4)
[2021-01-16 04:37] LABS: CALCIUM 8.3 mg/dL (8.4-10.2); CREATININE, SERUM 4.69 mg/dL (0.57-1.11)
[2021-01-16 04:58] LABS: THYROID STIMULATING HORMONE 1.962 uIU/mL (0.350-4.940)
[2021-01-16 08:57] VITALS: BP 114/80
[2021-01-16] MEDS: CHOLESTYRAMINE 4 GM PACKET PO SCH ×2 (08:58→16:47)
[2021-01-16] MEDS: DEXAMETHASONE SOD PHOS 10 MG/1 ML VIAL IV SCH (08:58)
[2021-01-16] MEDS: PANTOPRAZOLE SOD 40 MG TABEC PO SCH (08:58)
[2021-01-16] MEDS: CHOLECALCIFEROL 1,000 UNIT TAB PO SCH (08:59)
[2021-01-16] MEDS: CALCIUM CARBONATE 500 MG CHEWABLE TABS PO SCH ×3 (08:59→19:45)
[2021-01-16] MEDS: ZINC SULFATE 220 MG CAP PO SCH (08:59)
[2021-01-16] MEDS: ASCORBIC ACID 500 MG TAB PO SCH ×2 (08:59→16:48)
[2021-01-16] MEDS: METOPROLOL SUCCINATE 25 MG TAB XL PO SCH ×2 (08:59→16:48)
[2021-01-16] MEDS: CHOLECALCIFEROL 400 UNIT TAB PO SCH (08:59)
[2021-01-16] MEDS: TRAMADOL HCL 50 MG TAB PO PRN ×2 (18:48→23:06)
[2021-01-16 20:00] VITALS: BP 171/81
[2021-01-16 21:42] VITALS: BP 171/81
[2021-01-17] VITALS (8 sets, daily range): BP systolic 106–146; BP diastolic 69–82
[2021-01-17 06:06] LABS: BASOPHILS % 0.2 % (0.0-1.0); EOSINOPHILS % 0.1 % (0.0-6.0); HEMATOCRIT 28.6 % (34.2-44.1); LYMPHOCYTES # (AUTO) 0.4 (1.0-3.2); LYMPHOCYTES % 3.1 % (18.0-39.1); MEAN CORPUSCULAR HEMOGLOBIN 28.9 pg (28-32); MEAN CORPUSCULAR HGB CONC 31.5 g/dL (31-35); MONOCYTES # (AUTO) 0.8 (0.2-0.8); MONOCYTES % 5.9 % (4.4-11.3); NEUTROPHILS # (AUTO) 11.9 (2.1-6.9); NEUTROPHILS % 89.9 % (38.7-80.0); PLATELET COUNT 60 x10e3/uL (140-360); RED BLOOD COUNT 3.11 x10e6/uL (3.6-5.1); RED CELL DISTRIBUTION WIDTH 13.5 % (11.7-14.4)
[2021-01-17 06:40] LABS: ALBUMIN/GLOBULIN RATIO 0.7 (0.8-2.0); CALCIUM 8.4 mg/dL (8.4-10.2); CREATININE, SERUM 2.63 mg/dL (0.57-1.11)
[2021-01-17] MEDS: PANTOPRAZOLE SOD 40 MG TABEC PO SCH (09:03)
[2021-01-17] MEDS: DEXAMETHASONE SOD PHOS 10 MG/1 ML VIAL IV SCH (09:03)
[2021-01-17] MEDS: CHOLESTYRAMINE 4 GM PACKET PO SCH ×2 (09:03→17:10)
[2021-01-17] MEDS: ZINC SULFATE 220 MG CAP PO SCH (09:04)
[2021-01-17] MEDS: ASCORBIC ACID 500 MG TAB PO SCH ×2 (09:04→17:10)
[2021-01-17] MEDS: CHOLECALCIFEROL 1,000 UNIT TAB PO SCH (09:04)
[2021-01-17] MEDS: CHOLECALCIFEROL 400 UNIT TAB PO SCH (09:04)
[2021-01-17] MEDS: METOPROLOL SUCCINATE 25 MG TAB XL PO SCH ×2 (09:04→17:10)
[2021-01-17] MEDS: CALCIUM CARBONATE 500 MG CHEWABLE TABS PO SCH ×3 (09:04→20:38)
[2021-01-17] MEDS: TRAMADOL HCL 50 MG TAB PO PRN (10:06)
[2021-01-18] VITALS (8 sets, daily range): BP systolic 132–154; BP diastolic 68–90
[2021-01-18 06:34] LABS: BASOPHILS % 0.1 % (0.0-1.0); EOSINOPHILS % 0.1 % (0.0-6.0); HEMATOCRIT 29.1 % (34.2-44.1); HEMOGLOBIN 9.4 g/dL (12.0-16.0); LYMPHOCYTES # (AUTO) 0.5 (1.0-3.2); LYMPHOCYTES % 3.2 % (18.0-39.1); MEAN CORPUSCULAR HEMOGLOBIN 29.5 pg (28-32); MEAN CORPUSCULAR HGB CONC 32.3 g/dL (31-35); MEAN CORPUSCULAR VOLUME 91.2 fL (81-99); MONOCYTES # (AUTO) 0.8 (0.2-0.8); MONOCYTES % 5.4 % (4.4-11.3); NEUTROPHILS # (AUTO) 13.9 (2.1-6.9); NEUTROPHILS % 90.3 % (38.7-80.0); PLATELET COUNT 69 x10e3/uL (140-360); RED BLOOD COUNT 3.19 x10e6/uL (3.6-5.1); RED CELL DISTRIBUTION WIDTH 13.2 % (11.7-14.4)
[2021-01-18 07:03] LABS: ANION GAP 13.2 mmol/L (8-16); CALCIUM 9.1 mg/dL (8.4-10.2); CREATININE, SERUM 3.15 mg/dL (0.57-1.11); POTASSIUM 4.2 mmol/L (3.5-5.1)
[2021-01-18] MEDS: PANTOPRAZOLE SOD 40 MG TABEC PO SCH (08:42)
[2021-01-18] MEDS: METOPROLOL SUCCINATE 25 MG TAB XL PO SCH ×2 (09:07→17:00)
[2021-01-18] MEDS: CHOLESTYRAMINE 4 GM PACKET PO SCH ×2 (09:07→17:26)
[2021-01-18] MEDS: ASCORBIC ACID 500 MG TAB PO SCH ×2 (09:07→17:26)
[2021-01-18] MEDS: CHOLECALCIFEROL 400 UNIT TAB PO SCH (09:07)
[2021-01-18] MEDS: CHOLECALCIFEROL 1,000 UNIT TAB PO SCH (09:07)
[2021-01-18] MEDS: CALCIUM CARBONATE 500 MG CHEWABLE TABS PO SCH ×3 (09:07→21:55)
[2021-01-18] MEDS: ZINC SULFATE 220 MG CAP PO SCH (09:08)
[2021-01-18] MEDS: TRAMADOL HCL 50 MG TAB PO PRN ×3 (13:24→17:30)
[2021-01-19] VITALS (8 sets, daily range): BP systolic 115–142; BP diastolic 68–85
[2021-01-19] MEDS: TRAMADOL HCL 50 MG TAB PO PRN (00:47)
[2021-01-19 05:08] LABS: BASOPHILS % 0.2 % (0.0-1.0); EOSINOPHILS % 0.2 % (0.0-6.0); HEMATOCRIT 28.8 % (34.2-44.1); HEMOGLOBIN 9.2 g/dL (12.0-16.0); LYMPHOCYTES # (AUTO) 0.4 (1.0-3.2); LYMPHOCYTES % 2.8 % (18.0-39.1); MEAN CORPUSCULAR HGB CONC 31.9 g/dL (31-35); MEAN CORPUSCULAR VOLUME 93.8 fL (81-99); MONOCYTES # (AUTO) 0.6 (0.2-0.8); MONOCYTES % 4.6 % (4.4-11.3); NEUTROPHILS # (AUTO) 12.2 (2.1-6.9); PLATELET COUNT 72 x10e3/uL (140-360); RED BLOOD COUNT 3.07 x10e6/uL (3.6-5.1); RED CELL DISTRIBUTION WIDTH 13.2 % (11.7-14.4)
[2021-01-19 05:40] LABS: ALBUMIN/GLOBULIN RATIO 0.7 (0.8-2.0); ANION GAP 13.7 mmol/L (8-16); CALCIUM 9.5 mg/dL (8.4-10.2); CREATININE, SERUM 3.39 mg/dL (0.57-1.11); POTASSIUM 4.7 mmol/L (3.5-5.1)
[2021-01-19] MEDS: PANTOPRAZOLE SOD 40 MG TABEC PO SCH (07:30)
[2021-01-19] MEDS: ASCORBIC ACID 500 MG TAB PO SCH ×2 (08:55→16:33)
[2021-01-19] MEDS: CHOLESTYRAMINE 4 GM PACKET PO SCH ×2 (08:55→16:33)
[2021-01-19] MEDS: CHOLECALCIFEROL 1,000 UNIT TAB PO SCH (08:55)
[2021-01-19] MEDS: ZINC SULFATE 220 MG CAP PO SCH (08:55)
[2021-01-19] MEDS: METOPROLOL SUCCINATE 25 MG TAB XL PO SCH ×2 (08:55→16:33)
[2021-01-19] MEDS: CHOLECALCIFEROL 400 UNIT TAB PO SCH (08:55)
[2021-01-19] MEDS: CALCIUM CARBONATE 500 MG CHEWABLE TABS PO SCH ×3 (08:55→21:20)
[2021-01-19] MEDS ORDERED: HEPARIN SOD (PORCINE) 5,000 UNIT/ML VIAL ONE ×2 (08:56→08:57)
[2021-01-19] MEDS ORDERED: HYDROXYZINE HCL25 MG PO (14:47)
[2021-01-19] MEDS ORDERED: ZINC SULFATE50 MG PO (14:47)
[2021-01-19] MEDS ORDERED: ASPIRIN81 MG PO (15:19)
[2021-01-20] VITALS (8 sets, daily range): BP systolic 111–160; BP diastolic 67–87
[2021-01-20] MEDS: CHOLESTYRAMINE 4 GM PACKET PO SCH ×2 (08:55→17:19)
[2021-01-20] MEDS: PANTOPRAZOLE SOD 40 MG TABEC PO SCH (08:55)
[2021-01-20] MEDS: ASCORBIC ACID 500 MG TAB PO SCH ×2 (08:56→17:19)
[2021-01-20] MEDS: CALCIUM CARBONATE 500 MG CHEWABLE TABS PO SCH ×3 (08:56→21:00)
[2021-01-20] MEDS: CHOLECALCIFEROL 1,000 UNIT TAB PO SCH (08:56)
[2021-01-20] MEDS: ZINC SULFATE 220 MG CAP PO SCH (08:56)
[2021-01-20] MEDS: CHOLECALCIFEROL 400 UNIT TAB PO SCH (08:56)
[2021-01-20] MEDS: METOPROLOL SUCCINATE 25 MG TAB XL PO SCH ×2 (08:56→17:19)
[2021-01-20] MEDS: TRAMADOL HCL 50 MG TAB PO PRN (10:02)
[2021-01-21] VITALS: BP 126/86
[2021-01-21 04:00] VITALS: BP 122/86
[2021-01-21 05:54] LABS: BASOPHILS % 0.1 % (0.0-1.0); EOSINOPHILS # (AUTO) 0.1 (0.0-0.4); EOSINOPHILS % 0.7 % (0.0-6.0); HEMATOCRIT 26.6 % (34.2-44.1); HEMOGLOBIN 8.3 g/dL (12.0-16.0); LYMPHOCYTES # (AUTO) 0.3 (1.0-3.2); LYMPHOCYTES % 3.6 % (18.0-39.1); MEAN CORPUSCULAR HEMOGLOBIN 29.2 pg (28-32); MEAN CORPUSCULAR HGB CONC 31.2 g/dL (31-35); MEAN CORPUSCULAR VOLUME 93.7 fL (81-99); MONOCYTES # (AUTO) 0.5 (0.2-0.8); MONOCYTES % 5.3 % (4.4-11.3); NEUTROPHILS # (AUTO) 8.4 (2.1-6.9); NEUTROPHILS % 89.4 % (38.7-80.0); PLATELET COUNT 90 x10e3/uL (140-360); RED BLOOD COUNT 2.84 x10e6/uL (3.6-5.1); RED CELL DISTRIBUTION WIDTH 13.4 % (11.7-14.4)
[2021-01-21 06:24] LABS: ALBUMIN/GLOBULIN RATIO 0.7 (0.8-2.0); ANION GAP 12.9 mmol/L (8-16); CALCIUM 9.2 mg/dL (8.4-10.2); CREATININE, SERUM 2.07 mg/dL (0.57-1.11); POTASSIUM 3.9 mmol/L (3.5-5.1)
[2021-01-21] MEDS: PANTOPRAZOLE SOD 40 MG TABEC PO SCH (07:15)
[2021-01-21 07:47] VITALS: BP 126/84
[2021-01-21] MEDS: CHOLECALCIFEROL 400 UNIT TAB PO SCH (09:00)
[2021-01-21] MEDS: METOPROLOL SUCCINATE 25 MG TAB XL PO SCH ×2 (09:00→16:36)
[2021-01-21] MEDS: CALCIUM CARBONATE 500 MG CHEWABLE TABS PO SCH ×3 (09:00→21:00)
[2021-01-21] MEDS: ASCORBIC ACID 500 MG TAB PO SCH ×2 (09:00→16:36)
[2021-01-21] MEDS: CHOLESTYRAMINE 4 GM PACKET PO SCH ×2 (09:00→16:14)
[2021-01-21] MEDS: ZINC SULFATE 220 MG CAP PO SCH (09:00)
[2021-01-21] MEDS: CHOLECALCIFEROL 1,000 UNIT TAB PO SCH (09:00)
[2021-01-21 11:55] VITALS: BP 119/77
[2021-01-21 16:35] VITALS: BP 135/87
[2021-01-21 21:08] VITALS: BP 123/63
[2021-01-22] VITALS (10 sets, daily range): BP systolic 123–137; BP diastolic 63–89
[2021-01-22 06:06] LABS: ANION GAP 12.8 mmol/L (8-16); CALCIUM 9.4 mg/dL (8.4-10.2); CREATININE, SERUM 2.12 mg/dL (0.57-1.11); POTASSIUM 3.8 mmol/L (3.5-5.1)
[2021-01-22] MEDS: PANTOPRAZOLE SOD 40 MG TABEC PO SCH (09:07)
[2021-01-22] MEDS: ASPIRIN 81 MG CHEW TAB PO SCH (09:07)
[2021-01-22] MEDS: CHOLESTYRAMINE 4 GM PACKET PO SCH ×2 (09:07→17:03)
[2021-01-22] MEDS: METOPROLOL SUCCINATE 25 MG TAB XL PO SCH ×2 (09:08→17:11)
[2021-01-22] MEDS: CHOLECALCIFEROL 1,000 UNIT TAB PO SCH (09:08)
[2021-01-22] MEDS: CALCIUM CARBONATE 500 MG CHEWABLE TABS PO SCH ×3 (09:08→20:24)
[2021-01-22] MEDS: ZINC SULFATE 220 MG CAP PO SCH (09:08)
[2021-01-22] MEDS: ASCORBIC ACID 500 MG TAB PO SCH ×2 (09:08→17:03)
[2021-01-22] MEDS: CHOLECALCIFEROL 400 UNIT TAB PO SCH (09:08)
[2021-01-22] MEDS ORDERED: ASCORBIC ACID500 MG PO (10:45)
[2021-01-22] MEDS ORDERED: CHOLESTYRAMINE L4 GM PO (10:45)
[2021-01-22] MEDS ORDERED: ACETAMINOPHEN325 M1 PO (10:45)
[2021-01-22] MEDS ORDERED: Cholecalciferol PO (10:45)
[2021-01-22] MEDS ORDERED: Calcium Carbonate 500MG Chew PO (10:45)
[2021-01-23 00:49] VITALS: BP 124/73
[2021-01-23 05:58] LABS: ANION GAP 14.7 mmol/L (8-16); CALCIUM 9.1 mg/dL (8.4-10.2); CREATININE, SERUM 1.9 mg/dL (0.57-1.11); POTASSIUM 3.7 mmol/L (3.5-5.1)
[2021-01-23 06:06] VITALS: BP 112/67
[2021-01-23 08:08] VITALS: BP 119/74
[2021-01-23] MEDS: CHOLESTYRAMINE 4 GM PACKET PO SCH (08:42)
[2021-01-23] MEDS: PANTOPRAZOLE SOD 40 MG TABEC PO SCH (08:42)
[2021-01-23] MEDS: CALCIUM CARBONATE 500 MG CHEWABLE TABS PO SCH (08:43)
[2021-01-23] MEDS: CHOLECALCIFEROL 1,000 UNIT TAB PO SCH (08:43)
[2021-01-23] MEDS: ASPIRIN 81 MG CHEW TAB PO SCH (08:43)
[2021-01-23] MEDS: METOPROLOL SUCCINATE 25 MG TAB XL PO SCH (08:43)
[2021-01-23] MEDS: CHOLECALCIFEROL 400 UNIT TAB PO SCH (08:43)
[2021-01-23] MEDS: ASCORBIC ACID 500 MG TAB PO SCH (08:43)
[2021-01-23] MEDS: ZINC SULFATE 220 MG CAP PO SCH (08:43)
[2021-01-23 08:48] LABS: INR 1.02; PROTHROMBIN TIME 13.8 seconds (11.9-14.5)
[2021-01-23 08:49] LABS: PARTIAL THROMBOPLASTIN TIME 26.9 seconds (23.8-35.5)
[2021-01-23 09:37] VITALS: BP 119/74
[2021-01-23 11:52] VITALS: BP 114/76
== END 2021-01-23 15:14 | DRG 177 ==
LOC: ER 18:21 → ERHOLD 19:50 → MED/SURG2 23:48 → IMCU 01-08 18:35
PROVIDERS: ADMIT Internal Medicine; ATTEND Internal Medicine
PROC: 8E0ZXY6 Isolation (ICD-10-PCS; 2021-01-07)
PROC: 3E0333Z Introduction of Anti-inflammatory into Peripheral Vein, Percutaneous Approach (ICD-10-PCS; principal; 2021-01-08)
PROC: 02HV33Z Insertion of Infusion Device into Superior Vena Cava, Percutaneous Approach (ICD-10-PCS; 2021-01-11)
PROC: B548ZZA Ultrasonography of Superior Vena Cava, Guidance (ICD-10-PCS; 2021-01-11)
PROC: 5A1D70Z Performance of Urinary Filtration, Intermittent, Less than 6 Hours Per Day (ICD-10-PCS; 2021-01-11)
PROC: 02PY33Z Removal of Infusion Device from Great Vessel, Percutaneous Approach (ICD-10-PCS; 2021-01-14)
PROC: 02HV33Z Insertion of Infusion Device into Superior Vena Cava, Percutaneous Approach (ICD-10-PCS; 2021-01-14)
PROC: 0JH63XZ Insertion of Tunneled Vascular Access Device into Chest Subcutaneous Tissue and Fascia, Percutaneous Approach (ICD-10-PCS; 2021-01-14)
PROC: B548ZZA Ultrasonography of Superior Vena Cava, Guidance (ICD-10-PCS; 2021-01-14)
DX: U07.1 COVID-19 (principal); J12.82 Pneumonia due to coronavirus disease 2019; J96.21 Acute and chronic respiratory failure with hypoxia; N17.0 Acute kidney failure with tubular necrosis; N18.6 End stage renal disease; K57.92 Diverticulitis of intestine, part unspecified, without perforation or abscess without bleeding; E87.2 Acidosis; E87.1 Hypo-osmolality and hyponatremia; T82.838A Hemorrhage due to vascular prosthetic devices, implants and grafts, initial encounter; K92.1 Melena; I13.2 Hypertensive heart and chronic kidney disease with heart failure and with stage 5 chronic kidney disease, or end stage renal disease; I48.0 Paroxysmal atrial fibrillation; Z99.81 Dependence on supplemental oxygen; E78.5 Hyperlipidemia, unspecified; J44.9 Chronic obstructive pulmonary disease, unspecified; I25.10 Atherosclerotic heart disease of native coronary artery without angina pectoris; I71.4 Abdominal aortic aneurysm, without rupture; Z95.5 Presence of coronary angioplasty implant and graft; Z88.0 Allergy status to penicillin; K52.9 Noninfective gastroenteritis and colitis, unspecified; E83.51 Hypocalcemia; E83.39 Other disorders of phosphorus metabolism; M81.0 Age-related osteoporosis without current pathological fracture; I70.0 Atherosclerosis of aorta; E87.5 Hyperkalemia; D69.6 Thrombocytopenia, unspecified; I50.9 Heart failure, unspecified; F41.9 Anxiety disorder, unspecified
CPT/HCPCS: 36415; 36556; 36558; 36589; 71045; 71250; 74176; 74470; 76770; 76937; 77001; 80048; 80053; 80061; 81001; 82040; 82270; 82948; 83036; 83520; 83735; 83880; 84100; 84134; 84443; 84484; 85025; 85610; 85730; 86021; 86039; 86705; 86706; 87340; 90962; 93005; 93306; 96360; 96361; 97139; 99251; 99284; C1769; J0456; J0610; J1100; J1644; J1650; J2001; J2060; J2150; J2185; J3010; J3410; J7030; J7050; U0002

== ENCOUNTER 2021-02-13 09:28 | Inpatient (IN) | payer MEDICARE ==
[~2021-02-13] VITALS: Ht 157.5 cm; Wt 46.3 kg
[~2021-02-13 09:28] MED LIST changes: +ACETAMINOPHEN325 M1 PO; +ASCORBIC ACID500 MG PO; +ASPIRIN81 MG PO; +CHOLESTYRAMINE L4 GM PO; +Calcium Carbonate 500MG Chew PO; +Cholecalciferol PO; +HYDROXYZINE HCL25 MG PO; +ZINC SULFATE50 MG PO
[2021-02-13 10:05] LABS: EOSINOPHILS % 0.6 % (0.0-6.0); HEMATOCRIT 24.3 % (34.2-44.1); HEMOGLOBIN 7.1 g/dL (12.0-16.0); LYMPHOCYTES # (AUTO) 0.7 (1.0-3.2); LYMPHOCYTES % 10.6 % (18.0-39.1); MEAN CORPUSCULAR HEMOGLOBIN 29.8 pg (28-32); MEAN CORPUSCULAR HGB CONC 29.2 g/dL (31-35); MEAN CORPUSCULAR VOLUME 102.1 fL (81-99); MONOCYTES # (AUTO) 0.4 (0.2-0.8); MONOCYTES % 5.7 % (4.4-11.3); NEUTROPHILS # (AUTO) 5.4 (2.1-6.9); PLATELET COUNT 147 x10e3/uL (140-360); RED BLOOD COUNT 2.38 x10e6/uL (3.6-5.1); RED CELL DISTRIBUTION WIDTH 17.2 % (11.7-14.4)
[2021-02-13 10:27] LABS: ALBUMIN 2.3 g/dL (3.5-5.0); ALBUMIN/GLOBULIN RATIO 0.8 (0.8-2.0); CALCIUM 8.2 mg/dL (8.4-10.2); CREATININE, SERUM 0.69 mg/dL (0.57-1.11); MAGNESIUM 1.9 MG/DL (1.3-2.1)
[2021-02-13 10:33] LABS: CREATINE KINASE MB 1.6 ng/mL (0-5.0)
[2021-02-13 10:44] LABS: CLARITY,URINE CLOUDY (CLEAR); COLOR,URINE YELLOW (YELLOW); KETONES,URINE NEGATIVE (NEGATIVE); LEUKOCYTE ESTERASE ,URINE MODERATE (NEGATIVE); NITRITE,URINE NEGATIVE (NEGATIVE); PROTEIN,URINE DIPSTICK 1+ (NEGATIVE); URINE UROBILINOGEN 0.2 mg/dL (0.2 - 1)
[2021-02-13 10:46] LABS: BACTERIA,URINE MODERATE /HPF; EPITHELIAL CELLS,URINE MODERATE /LPF; RBC,URINE >50 /HPF (0-5); WBC,URINE (MAN) >50 /HPF (0-5)
[2021-02-13 10:47] LABS: INR 1.1; PROTHROMBIN TIME 15.1 seconds (11.9-14.5)
[2021-02-13 10:48] LABS: PARTIAL THROMBOPLASTIN TIME 28.6 seconds (23.8-35.5)
[2021-02-13] MEDS ORDERED: MEROPENEM 1 GM in SODIUM CHLORIDE 0.9% 100 ML IV SCH (12:00)
[2021-02-13] MEDS ORDERED: SODIUM CHLORIDE 0.9% 250ML 250 ML IV ONE (12:00)
[2021-02-13] MEDS ORDERED: Vancomycin IV 1 GM in SODIUM CHLORIDE 0.9% 250ML 250 ML IV ONE (12:30)
[2021-02-13] MEDS ORDERED: ONDANSETRON HCL INJ 2MG/ML 2ML 2 MG/ML VIAL IV PRN (13:30)
[2021-02-13] MEDS: SODIUM CHLORIDE 0.9% 1000ML 1,000 ML IV SCH (16:10)
[2021-02-13 16:24] VITALS: BP 153/81
[2021-02-13 16:25] VITALS: BP 153/81
[2021-02-13] MEDS: DOCUSATE SODIUM 100 MG CAP PO SCH (16:55)
[2021-02-13] MEDS ORDERED: BENZONATATE 100 MG CAP PO PRN (17:00)
[2021-02-13] MEDS ORDERED: HYDRALAZINE HCL 20 MG/ML VIAL IV PRN (17:00)
[2021-02-13 20:00] VITALS: BP 153/81
[2021-02-13] MEDS: MEROPENEM 1 GM in SODIUM CHLORIDE 0.9% 100 ML IV SCH (20:17)
[2021-02-13 20:26] VITALS: BP 136/76
[2021-02-13 21:32] LABS: CREATINE KINASE MB 2.1 ng/mL (0-5.0)
[2021-02-14] VITALS (8 sets, daily range): BP systolic 120–159; BP diastolic 73–91
[2021-02-14] MEDS: SODIUM CHLORIDE 0.9% 1000ML 1,000 ML IV SCH (06:40)
[2021-02-14] MEDS: MEROPENEM 1 GM in SODIUM CHLORIDE 0.9% 100 ML IV SCH ×4 (06:43→22:00)
[2021-02-14] MEDS: MULTIVITAMINS/MINERALS TAB PO SCH (08:16)
[2021-02-14] MEDS: DOCUSATE SODIUM 100 MG CAP PO SCH ×2 (08:16→17:00)
[2021-02-14 09:16] LABS: BASOPHILS % 0.4 % (0.0-1.0); EOSINOPHILS # (AUTO) 0.1 (0.0-0.4); EOSINOPHILS % 1.1 % (0.0-6.0); HEMATOCRIT 33.8 % (34.2-44.1); HEMOGLOBIN 10.8 g/dL (12.0-16.0); LYMPHOCYTES # (AUTO) 0.6 (1.0-3.2); LYMPHOCYTES % 6.6 % (18.0-39.1); MEAN CORPUSCULAR HEMOGLOBIN 30.8 pg (28-32); MEAN CORPUSCULAR VOLUME 96.3 fL (81-99); MONOCYTES # (AUTO) 0.7 (0.2-0.8); NEUTROPHILS # (AUTO) 7.8 (2.1-6.9); NEUTROPHILS % 82.7 % (38.7-80.0); PLATELET COUNT 144 x10e3/uL (140-360); RED BLOOD COUNT 3.51 x10e6/uL (3.6-5.1); RED CELL DISTRIBUTION WIDTH 18.3 % (11.7-14.4)
[2021-02-14 09:46] LABS: ALBUMIN 2.4 g/dL (3.5-5.0); ALBUMIN/GLOBULIN RATIO 0.7 (0.8-2.0); ANION GAP 17.2 mmol/L (8-16); CALCIUM 8.4 mg/dL (8.4-10.2); CREATININE, SERUM 0.61 mg/dL (0.57-1.11); POTASSIUM 4.2 mmol/L (3.5-5.1)
[2021-02-14 10:29] LABS: CREATINE KINASE MB 2.2 ng/mL (0-5.0)
[2021-02-14] MEDS: IPRATROPIUM BROMIDE 0.02% 2.5 ML NEB NEB SCH ×2 (10:50→13:00)
[2021-02-14] MEDS: ALBUTEROL SULF 0.083% NEB SOLN 3 ML NEB NEB PRN (10:55)
[2021-02-14] MEDS ORDERED: FUROSEMIDE INJ 10 MG/ML 4 ML VIAL IV NR (13:30)
[2021-02-14] MEDS: METOPROLOL SUCCINATE 25 MG TAB XL PO SCH (13:58)
[2021-02-14] MEDS: DEXAMETHASONE SOD PHOS 10 MG/1 ML VIAL IV SCH (14:32)
[2021-02-14] MEDS ORDERED: IOPAMIDOL 370 MG/ML 200 ML INFUS..BTL INJ ONE (15:00)
[2021-02-14] MEDS ORDERED: SODIUM CHLORIDE 0.9% 50ML 50 ML ONE (15:00)
[2021-02-14 15:05] LABS: % IRON SATURATION 28 % (15-50); IRON 72 ug/dL (50-170); TOTAL IRON BINDING CAPACITY 255 ug/dL (261-478); TRANSFERRIN 182 mg/dL (180-382)
[2021-02-14] MEDS: ASPIRIN 81 MG CHEW TAB PO SCH (16:30)
[2021-02-14] MEDS: ENOXAPARIN 30 MG/0.3 ML SYR SC SCH (17:00)
[2021-02-14] MEDS: IPRATROPIUM BROMIDE INHALER 12.9 GM INH INH SCH (19:40)
[2021-02-15] VITALS (12 sets, daily range): BP systolic 105–146; BP diastolic 66–91
[2021-02-15] MEDS: IPRATROPIUM BROMIDE INHALER 12.9 GM INH INH SCH ×4 (00:35→18:30)
[2021-02-15] MEDS: MEROPENEM 1 GM in SODIUM CHLORIDE 0.9% 100 ML IV SCH ×3 (05:09→21:07)
[2021-02-15 06:04] LABS: ALBUMIN/GLOBULIN RATIO 0.7 (0.8-2.0); ANION GAP 13.5 mmol/L (8-16); CREATININE, SERUM 0.62 mg/dL (0.57-1.11); POTASSIUM 3.5 mmol/L (3.5-5.1)
[2021-02-15] MEDS: MULTIVITAMINS/MINERALS TAB PO SCH (08:44)
[2021-02-15] MEDS: METOPROLOL SUCCINATE 25 MG TAB XL PO SCH ×3 (08:44→16:31)
[2021-02-15] MEDS: ZINC SULFATE 220 MG CAP PO SCH (08:44)
[2021-02-15] MEDS: PANTOPRAZOLE SOD 40 MG TABEC PO SCH (08:44)
[2021-02-15] MEDS: DEXAMETHASONE SOD PHOS 10 MG/1 ML VIAL IV SCH (08:44)
[2021-02-15] MEDS: ASPIRIN 81 MG CHEW TAB PO SCH (08:44)
[2021-02-15] MEDS: SERTRALINE HCL 50 MG TAB PO SCH (08:44)
[2021-02-15] MEDS: DOCUSATE SODIUM 100 MG CAP PO SCH ×2 (08:44→16:01)
[2021-02-15] MEDS ORDERED: KCL 20 MEQ PACKET/ ORAL SOLN NG ONE (09:00)
[2021-02-15] MEDS ORDERED: ASPIRIN 81 MG CHEW TAB PO SCH (09:00)
[2021-02-15 09:18] LABS: BASOPHILS % 0.4 % (0.0-1.0); EOSINOPHILS # (AUTO) 0.1 (0.0-0.4); EOSINOPHILS % 1.5 % (0.0-6.0); HEMOGLOBIN 9.7 g/dL (12.0-16.0); LYMPHOCYTES # (AUTO) 0.5 (1.0-3.2); LYMPHOCYTES % 10.3 % (18.0-39.1); MEAN CORPUSCULAR HEMOGLOBIN 30.4 pg (28-32); MEAN CORPUSCULAR HGB CONC 31.3 g/dL (31-35); MEAN CORPUSCULAR VOLUME 97.2 fL (81-99); MONOCYTES # (AUTO) 0.4 (0.2-0.8); MONOCYTES % 7.6 % (4.4-11.3); NEUTROPHILS % 77.1 % (38.7-80.0); PLATELET COUNT 139 x10e3/uL (140-360); RED BLOOD COUNT 3.19 x10e6/uL (3.6-5.1); RED CELL DISTRIBUTION WIDTH 18.2 % (11.7-14.4)
[2021-02-15] MEDS: ALBUTEROL SULF 0.083% NEB SOLN 3 ML NEB NEB PRN (11:25)
[2021-02-15] MEDS: ACETAMINOPHEN 325 MG TAB PO PRN (15:34)
[2021-02-15] MEDS: ENOXAPARIN 30 MG/0.3 ML SYR SC SCH (16:01)
[2021-02-15] MEDS: SIMVASTATIN 40 MG TAB PO SCH (21:01)
[2021-02-16] VITALS (8 sets, daily range): BP systolic 103–153; BP diastolic 70–98
[2021-02-16] MEDS: MEROPENEM 1 GM in SODIUM CHLORIDE 0.9% 100 ML IV SCH ×3 (06:16→22:40)
[2021-02-16] MEDS: IPRATROPIUM BROMIDE INHALER 12.9 GM INH INH SCH ×3 (07:02→18:35)
[2021-02-16] MEDS: DEXAMETHASONE SOD PHOS 10 MG/1 ML VIAL IV SCH (08:17)
[2021-02-16] MEDS: DOCUSATE SODIUM 100 MG CAP PO SCH ×2 (08:18→15:16)
[2021-02-16] MEDS: SERTRALINE HCL 50 MG TAB PO SCH (08:18)
[2021-02-16] MEDS: ASPIRIN 81 MG CHEW TAB PO SCH (08:18)
[2021-02-16] MEDS: PANTOPRAZOLE SOD 40 MG TABEC PO SCH (08:18)
[2021-02-16] MEDS: METOPROLOL SUCCINATE 25 MG TAB XL PO SCH ×2 (08:18→15:18)
[2021-02-16] MEDS: MULTIVITAMINS/MINERALS TAB PO SCH (08:18)
[2021-02-16] MEDS: ZINC SULFATE 220 MG CAP PO SCH (08:18)
[2021-02-16] MEDS: HYDROXYZINE PAMOATE 25 MG CAP PO PRN (09:37)
[2021-02-16] MEDS: ACETAMINOPHEN 325 MG TAB PO PRN ×2 (09:37→22:40)
[2021-02-16 12:16] LABS: BASOPHILS % 0.1 % (0.0-1.0); EOSINOPHILS # (AUTO) 0.1 (0.0-0.4); EOSINOPHILS % 1.3 % (0.0-6.0); HEMATOCRIT 34.4 % (34.2-44.1); HEMOGLOBIN 10.3 g/dL (12.0-16.0); LYMPHOCYTES # (AUTO) 0.5 (1.0-3.2); LYMPHOCYTES % 7.8 % (18.0-39.1); MEAN CORPUSCULAR HEMOGLOBIN 29.2 pg (28-32); MEAN CORPUSCULAR HGB CONC 29.9 g/dL (31-35); MEAN CORPUSCULAR VOLUME 97.5 fL (81-99); MONOCYTES # (AUTO) 0.2 (0.2-0.8); MONOCYTES % 3.5 % (4.4-11.3); NEUTROPHILS # (AUTO) 5.9 (2.1-6.9); NEUTROPHILS % 85.6 % (38.7-80.0); PLATELET COUNT 142 x10e3/uL (140-360); RED BLOOD COUNT 3.53 x10e6/uL (3.6-5.1); RED CELL DISTRIBUTION WIDTH 17.8 % (11.7-14.4)
[2021-02-16 13:36] LABS: ALBUMIN 2.2 g/dL (3.5-5.0); ALBUMIN/GLOBULIN RATIO 0.7 (0.8-2.0); ANION GAP 12.7 mmol/L (8-16); CALCIUM 8.4 mg/dL (8.4-10.2); CREATININE, SERUM 0.67 mg/dL (0.57-1.11); POTASSIUM 4.7 mmol/L (3.5-5.1)
[2021-02-16] MEDS: ENOXAPARIN 30 MG/0.3 ML SYR SC SCH (15:16)
[2021-02-16] MEDS ORDERED: METHYLPREDNISOLONE SOD SUCC 40 MG/ML VIAL 1ML IV ONE (21:15)
[2021-02-16] MEDS ORDERED: FUROSEMIDE INJ 10 MG/ML 2 ML VIAL IV ONE (21:15)
[2021-02-16] MEDS: SIMVASTATIN 40 MG TAB PO SCH (22:38)
[2021-02-17] VITALS (8 sets, daily range): BP systolic 117–153; BP diastolic 69–90
[2021-02-17 04:58] LABS: BASOPHILS % 0.2 % (0.0-1.0); EOSINOPHILS # (AUTO) 0.1 (0.0-0.4); EOSINOPHILS % 1.3 % (0.0-6.0); HEMATOCRIT 32.9 % (34.2-44.1); HEMOGLOBIN 9.9 g/dL (12.0-16.0); LYMPHOCYTES # (AUTO) 0.6 (1.0-3.2); LYMPHOCYTES % 10.4 % (18.0-39.1); MEAN CORPUSCULAR HEMOGLOBIN 29.6 pg (28-32); MEAN CORPUSCULAR HGB CONC 30.1 g/dL (31-35); MEAN CORPUSCULAR VOLUME 98.2 fL (81-99); MONOCYTES # (AUTO) 0.2 (0.2-0.8); MONOCYTES % 3.3 % (4.4-11.3); PLATELET COUNT 133 x10e3/uL (140-360); RED BLOOD COUNT 3.35 x10e6/uL (3.6-5.1); RED CELL DISTRIBUTION WIDTH 17.3 % (11.7-14.4)
[2021-02-17] MEDS: MEROPENEM 1 GM in SODIUM CHLORIDE 0.9% 100 ML IV SCH ×3 (05:09→21:12)
[2021-02-17 05:16] LABS: ALBUMIN 2.1 g/dL (3.5-5.0); ALBUMIN/GLOBULIN RATIO 0.7 (0.8-2.0); ANION GAP 14.7 mmol/L (8-16); CALCIUM 8.1 mg/dL (8.4-10.2); CREATININE, SERUM 0.7 mg/dL (0.57-1.11); POTASSIUM 4.7 mmol/L (3.5-5.1)
[2021-02-17] MEDS: IPRATROPIUM BROMIDE INHALER 12.9 GM INH INH SCH ×2 (06:55→11:08)
[2021-02-17] MEDS: DEXAMETHASONE SOD PHOS 10 MG/1 ML VIAL IV SCH (08:25)
[2021-02-17] MEDS: ASPIRIN 81 MG CHEW TAB PO SCH (08:25)
[2021-02-17] MEDS: ZINC SULFATE 220 MG CAP PO SCH (08:26)
[2021-02-17] MEDS: DOCUSATE SODIUM 100 MG CAP PO SCH ×2 (08:26→16:18)
[2021-02-17] MEDS: MULTIVITAMINS/MINERALS TAB PO SCH (08:26)
[2021-02-17] MEDS: PANTOPRAZOLE SOD 40 MG TABEC PO SCH (08:26)
[2021-02-17] MEDS: SERTRALINE HCL 50 MG TAB PO SCH (08:27)
[2021-02-17] MEDS: METOPROLOL SUCCINATE 25 MG TAB XL PO SCH (08:28)
[2021-02-17] MEDS: ACETAMINOPHEN 325 MG TAB PO PRN ×2 (09:09→21:12)
[2021-02-17] MEDS: HALOPERIDOL LACTATE 5 MG/ML VIAL IV PRN ×2 (10:53→21:00)
[2021-02-17] MEDS: ALBUTEROL SULF 0.083% NEB SOLN 3 ML NEB NEB PRN (11:00)
[2021-02-17] MEDS ORDERED: Morphine 2mg Syringe 2 MG/ML SYR IV NR (15:15)
[2021-02-17] MEDS: ENOXAPARIN 30 MG/0.3 ML SYR SC SCH (16:18)
[2021-02-17] MEDS: METOPROLOL SUCCINATE 50 MG TAB XL PO SCH (16:19)
[2021-02-17] MEDS: SIMVASTATIN 40 MG TAB PO SCH (21:12)
[2021-02-18] VITALS (8 sets, daily range): BP systolic 119–154; BP diastolic 65–89
[2021-02-18] MEDS: IPRATROPIUM BROMIDE INHALER 12.9 GM INH INH SCH ×4 (01:50→18:00)
[2021-02-18 05:02] LABS: BASOPHILS % 0.3 % (0.0-1.0); EOSINOPHILS # (AUTO) 0.3 (0.0-0.4); HEMATOCRIT 31.3 % (34.2-44.1); HEMOGLOBIN 9.2 g/dL (12.0-16.0); LYMPHOCYTES % 15.1 % (18.0-39.1); MEAN CORPUSCULAR HEMOGLOBIN 29.6 pg (28-32); MEAN CORPUSCULAR HGB CONC 29.4 g/dL (31-35); MEAN CORPUSCULAR VOLUME 100.6 fL (81-99); MONOCYTES # (AUTO) 0.5 (0.2-0.8); MONOCYTES % 7.2 % (4.4-11.3); NEUTROPHILS # (AUTO) 4.7 (2.1-6.9); PLATELET COUNT 124 x10e3/uL (140-360); RED BLOOD COUNT 3.11 x10e6/uL (3.6-5.1)
[2021-02-18 05:20] LABS: ALBUMIN 1.9 g/dL (3.5-5.0); ALBUMIN/GLOBULIN RATIO 0.8 (0.8-2.0); CALCIUM 7.8 mg/dL (8.4-10.2); CREATININE, SERUM 0.62 mg/dL (0.57-1.11)
[2021-02-18] MEDS: MEROPENEM 1 GM in SODIUM CHLORIDE 0.9% 100 ML IV SCH ×3 (05:49→21:59)
[2021-02-18] MEDS: ZINC SULFATE 220 MG CAP PO SCH (08:41)
[2021-02-18] MEDS: SERTRALINE HCL 50 MG TAB PO SCH (08:41)
[2021-02-18] MEDS: METOPROLOL SUCCINATE 50 MG TAB XL PO SCH ×2 (08:42→16:40)
[2021-02-18] MEDS: PANTOPRAZOLE SOD 40 MG TABEC PO SCH (08:42)
[2021-02-18] MEDS: MULTIVITAMINS/MINERALS TAB PO SCH (08:42)
[2021-02-18] MEDS: DOCUSATE SODIUM 100 MG CAP PO SCH ×2 (08:42→16:40)
[2021-02-18] MEDS: DEXAMETHASONE SOD PHOS 10 MG/1 ML VIAL IV SCH (08:43)
[2021-02-18] MEDS: ASPIRIN 81 MG CHEW TAB PO SCH (08:43)
[2021-02-18] MEDS ORDERED: METHYLPREDNISOLONE SOD SUCC 40 MG/ML VIAL 1ML IV ONE (11:30)
[2021-02-18] MEDS ORDERED: ALBUTEROL/IPRATROPIUM 3 ML NEB NEB ONE (11:30)
[2021-02-18] MEDS ORDERED: ONDANSETRON HCL 4 MG ORAL DISINTEGRATING TAB PO PRN (12:00)
[2021-02-18] MEDS ORDERED: HALOPERIDOL LACTATE 5 MG/ML VIAL IV PRN (14:15)
[2021-02-18] MEDS: ENOXAPARIN 30 MG/0.3 ML SYR SC SCH (16:40)
[2021-02-18] MEDS: SIMVASTATIN 40 MG TAB PO SCH (21:58)
[2021-02-19] VITALS (8 sets, daily range): BP systolic 125–157; BP diastolic 60–84
[2021-02-19] MEDS: IPRATROPIUM BROMIDE INHALER 12.9 GM INH INH SCH ×4 (01:40→18:45)
[2021-02-19] MEDS: HYDROXYZINE PAMOATE 25 MG CAP PO PRN (02:17)
[2021-02-19 04:57] LABS: BASOPHILS % 0.3 % (0.0-1.0); EOSINOPHILS # (AUTO) 0.3 (0.0-0.4); HEMATOCRIT 32.5 % (34.2-44.1); HEMOGLOBIN 9.8 g/dL (12.0-16.0); LYMPHOCYTES # (AUTO) 1.3 (1.0-3.2); LYMPHOCYTES % 18.9 % (18.0-39.1); MEAN CORPUSCULAR HEMOGLOBIN 30.3 pg (28-32); MEAN CORPUSCULAR HGB CONC 30.2 g/dL (31-35); MEAN CORPUSCULAR VOLUME 100.6 fL (81-99); MONOCYTES # (AUTO) 0.5 (0.2-0.8); MONOCYTES % 7.1 % (4.4-11.3); NEUTROPHILS # (AUTO) 4.8 (2.1-6.9); NEUTROPHILS % 67.9 % (38.7-80.0); PLATELET COUNT 130 x10e3/uL (140-360); RED BLOOD COUNT 3.23 x10e6/uL (3.6-5.1); RED CELL DISTRIBUTION WIDTH 16.3 % (11.7-14.4)
[2021-02-19 05:17] LABS: ALBUMIN 1.9 g/dL (3.5-5.0); ALBUMIN/GLOBULIN RATIO 0.8 (0.8-2.0); ANION GAP 8.8 mmol/L (8-16); CALCIUM 7.9 mg/dL (8.4-10.2); CREATININE, SERUM 0.53 mg/dL (0.57-1.11); POTASSIUM 3.8 mmol/L (3.5-5.1)
[2021-02-19] MEDS: MEROPENEM 1 GM in SODIUM CHLORIDE 0.9% 100 ML IV SCH ×3 (06:00→21:53)
[2021-02-19 06:07] LABS: EOSINOPHILS % (MANUAL) 4 % (0-7); LYMPHOCYTES % (MANUAL) 22 % (19-48); MONOCYTES % (MANUAL) 5 % (3.4-9.0); NEUTROPHILS % (MANUAL) 69 % (40-74); PLATELET ESTIMATE SLIGHTLY DECREASED; PLATELET MORPHOLOGY COMMENT NORMAL; RBC MORPHOLOGY COMMENT ABNORMAL
[2021-02-19] MEDS: SERTRALINE HCL 50 MG TAB PO SCH (09:00)
[2021-02-19] MEDS: PANTOPRAZOLE SOD 40 MG TABEC PO SCH (09:34)
[2021-02-19] MEDS: ASPIRIN 81 MG CHEW TAB PO SCH (09:34)
[2021-02-19] MEDS: DOCUSATE SODIUM 100 MG CAP PO SCH ×2 (09:34→16:25)
[2021-02-19] MEDS: DEXAMETHASONE SOD PHOS 10 MG/1 ML VIAL IV SCH (09:34)
[2021-02-19] MEDS: METOPROLOL SUCCINATE 50 MG TAB XL PO SCH ×2 (09:34→17:04)
[2021-02-19] MEDS: MULTIVITAMINS/MINERALS TAB PO SCH (09:34)
[2021-02-19] MEDS: ZINC SULFATE 220 MG CAP PO SCH (09:34)
[2021-02-19] MEDS: SERTRALINE HCL 100 MG TAB PO SCH (09:35)
[2021-02-19] MEDS: ENOXAPARIN 30 MG/0.3 ML SYR SC SCH (16:25)
[2021-02-19] MEDS: ALBUTEROL SULF 0.083% NEB SOLN 3 ML NEB NEB PRN (18:45)
[2021-02-19] MEDS: SIMVASTATIN 40 MG TAB PO SCH (21:00)
[2021-02-19] MEDS: ACETAMINOPHEN 325 MG TAB PO PRN (21:54)
[2021-02-20] VITALS (7 sets, daily range): BP systolic 140–159; BP diastolic 70–91
[2021-02-20] MEDS: IPRATROPIUM BROMIDE INHALER 12.9 GM INH INH SCH ×4 (03:20→18:40)
[2021-02-20 05:03] LABS: BASOPHILS % 0.4 % (0.0-1.0); EOSINOPHILS # (AUTO) 0.4 (0.0-0.4); EOSINOPHILS % 5.9 % (0.0-6.0); HEMATOCRIT 35.2 % (34.2-44.1); HEMOGLOBIN 10.6 g/dL (12.0-16.0); LYMPHOCYTES # (AUTO) 1.6 (1.0-3.2); LYMPHOCYTES % 22.6 % (18.0-39.1); MEAN CORPUSCULAR HEMOGLOBIN 30.8 pg (28-32); MEAN CORPUSCULAR HGB CONC 30.1 g/dL (31-35); MEAN CORPUSCULAR VOLUME 102.3 fL (81-99); MONOCYTES # (AUTO) 0.5 (0.2-0.8); MONOCYTES % 6.9 % (4.4-11.3); NEUTROPHILS # (AUTO) 4.4 (2.1-6.9); NEUTROPHILS % 62.2 % (38.7-80.0); PLATELET COUNT 130 x10e3/uL (140-360); RED BLOOD COUNT 3.44 x10e6/uL (3.6-5.1); RED CELL DISTRIBUTION WIDTH 16.1 % (11.7-14.4)
[2021-02-20 05:23] LABS: ANION GAP 11.2 mmol/L (8-16); CALCIUM 8.3 mg/dL (8.4-10.2); CREATININE, SERUM 0.57 mg/dL (0.57-1.11); POTASSIUM 4.2 mmol/L (3.5-5.1)
[2021-02-20] MEDS: MEROPENEM 1 GM in SODIUM CHLORIDE 0.9% 100 ML IV SCH ×3 (05:35→21:51)
[2021-02-20] MEDS: ACETAMINOPHEN 325 MG TAB PO PRN ×3 (05:36→21:15)
[2021-02-20] MEDS: SERTRALINE HCL 100 MG TAB PO SCH (09:00)
[2021-02-20] MEDS: SERTRALINE HCL 50 MG TAB PO SCH (09:00)
[2021-02-20] MEDS: DEXAMETHASONE SOD PHOS 10 MG/1 ML VIAL IV SCH (09:00)
[2021-02-20] MEDS: ASPIRIN 81 MG CHEW TAB PO SCH (09:00)
[2021-02-20] MEDS: PANTOPRAZOLE SOD 40 MG TABEC PO SCH (09:00)
[2021-02-20] MEDS: ZINC SULFATE 220 MG CAP PO SCH (09:00)
[2021-02-20] MEDS: METOPROLOL SUCCINATE 50 MG TAB XL PO SCH ×2 (09:00→17:00)
[2021-02-20] MEDS: DOCUSATE SODIUM 100 MG CAP PO SCH ×2 (09:00→17:00)
[2021-02-20] MEDS: MULTIVITAMINS/MINERALS TAB PO SCH (09:00)
[2021-02-20] MEDS: ENOXAPARIN 30 MG/0.3 ML SYR SC SCH (17:00)
[2021-02-20] MEDS: SIMVASTATIN 40 MG TAB PO SCH (20:48)
[2021-02-21] VITALS: BP 150/78
[2021-02-21] MEDS: IPRATROPIUM BROMIDE INHALER 12.9 GM INH INH SCH ×3 (02:50→12:45)
[2021-02-21 04:00] VITALS: BP 154/78
[2021-02-21] MEDS: MEROPENEM 1 GM in SODIUM CHLORIDE 0.9% 100 ML IV SCH (05:40)
[2021-02-21 07:34] VITALS: BP 139/73
[2021-02-21 07:56] VITALS: BP 139/73
[2021-02-21] MEDS: METOPROLOL SUCCINATE 50 MG TAB XL PO SCH (09:14)
[2021-02-21] MEDS: DEXAMETHASONE SOD PHOS 10 MG/1 ML VIAL IV SCH (09:14)
[2021-02-21] MEDS: SERTRALINE HCL 100 MG TAB PO SCH (09:14)
[2021-02-21] MEDS: ZINC SULFATE 220 MG CAP PO SCH (09:14)
[2021-02-21] MEDS: MULTIVITAMINS/MINERALS TAB PO SCH (09:14)
[2021-02-21] MEDS: DOCUSATE SODIUM 100 MG CAP PO SCH (09:14)
[2021-02-21] MEDS: PANTOPRAZOLE SOD 40 MG TABEC PO SCH (09:14)
[2021-02-21] MEDS: ASPIRIN 81 MG CHEW TAB PO SCH (09:14)
[2021-02-21] MEDS: ACETAMINOPHEN 325 MG TAB PO PRN (10:16)
[2021-02-21 11:22] VITALS: BP 157/84
[2021-02-21] MEDS ORDERED: HYDROCODONE/APAP 5MG-325MG TAB PO PRN (11:30)
[2021-02-21] MEDS: ALBUTEROL SULF 0.083% NEB SOLN 3 ML NEB NEB PRN (12:45)
== END 2021-02-21 14:33 | disposition home or self-care (01) | DRG 193 ==
LOC: ER 09:46 → ERHOLD 13:34 → MED/SURG3 14:48 → IMCU 02-14 15:40 → MED/SURG2 02-16 14:44
PROVIDERS: ADMIT Internal Medicine; ATTEND Internal Medicine
PROC: 30233N1 Transfusion of Nonautologous Red Blood Cells into Peripheral Vein, Percutaneous Approach (ICD-10-PCS; principal; 2021-02-13)
PROC: 8E0ZXY6 Isolation (ICD-10-PCS; 2021-02-13)
DX: J18.8 Other pneumonia, unspecified organism (principal); J96.01 Acute respiratory failure with hypoxia; T83.518A Infection and inflammatory reaction due to other urinary catheter, initial encounter; N39.0 Urinary tract infection, site not specified; J44.1 Chronic obstructive pulmonary disease with (acute) exacerbation; Z68.1 Body mass index [BMI] 19.9 or less, adult; E44.0 Moderate protein-calorie malnutrition; I48.92 Unspecified atrial flutter; J44.0 Chronic obstructive pulmonary disease with (acute) lower respiratory infection; U09.9 Post COVID-19 condition, unspecified; R62.7 Adult failure to thrive; D63.8 Anemia in other chronic diseases classified elsewhere; E78.5 Hyperlipidemia, unspecified; I48.0 Paroxysmal atrial fibrillation; Z79.01 Long term (current) use of anticoagulants; I25.10 Atherosclerotic heart disease of native coronary artery without angina pectoris; Z95.5 Presence of coronary angioplasty implant and graft; D50.0 Iron deficiency anemia secondary to blood loss (chronic); Y95 Nosocomial condition; F41.9 Anxiety disorder, unspecified; I73.9 Peripheral vascular disease, unspecified; I11.0 Hypertensive heart disease with heart failure; I50.9 Heart failure, unspecified; Z74.09 Other reduced mobility; I71.4 Abdominal aortic aneurysm, without rupture
CPT/HCPCS: 36415; 71045; 71260; 80048; 80053; 80202; 81001; 82550; 82553; 82607; 83540; 83735; 83880; 84466; 84484; 85025; 85610; 85730; 86850; 86900; 86920; 87040; 87086; 93005; 93306; 94640; 94664; 94799; 97139; 99251; 99284; J1100; J1630; J1650; J1940; J2185; J2270; J2920; J3370; J7030; J7050; P9016; Q0177; Q9967; U0002

== ENCOUNTER 2021-02-26 07:23 | Emergency (ER) | payer MEDICARE ==
[~2021-02-26] VITALS: Ht 309.9 cm; Wt 46.3 kg
[2021-02-26] MEDS ORDERED: FLUORESCEIN SOD(OPTH) 1 MG STRP OP ONE (07:30)
[2021-02-26] MEDS ORDERED: TETRACAINE HCL 0.5% OPTH SOLN 4 ML BTL ONE (07:39)
[2021-02-26 09:30] VITALS: BP 178/89
== END 2021-02-26 09:31 ==
LOC: ER 07:30
DX: H11.32 Conjunctival hemorrhage, left eye (principal); H57.12 Ocular pain, left eye; I10 Essential (primary) hypertension; J44.9 Chronic obstructive pulmonary disease, unspecified; Z88.0 Allergy status to penicillin; Z86.2 Personal history of diseases of the blood and blood-forming organs and certain disorders involving the immune mechanism
CPT/HCPCS: 99284

== ENCOUNTER 2021-03-01 12:48 | Inpatient (IN) | payer MEDICARE ==
[~2021-03-01] VITALS: Ht 160 cm; Wt 45.4 kg
[2021-03-01] MEDS ORDERED: ALBUTEROL/IPRATROPIUM 3 ML NEB NEB ONE (13:00)
[2021-03-01] MEDS ORDERED: DEXAMETHASONE SOD PHOS 10 MG/1 ML VIAL IV ONE (13:00)
[2021-03-01] MEDS ORDERED: DEXAMETHASONE SOD PHOS 10 MG/1 ML VIAL ONE (13:04)
[2021-03-01 13:07] LABS: BASOPHILS % 0.2 % (0.0-1.0); EOSINOPHILS # (AUTO) 0.5 (0.0-0.4); EOSINOPHILS % 7.1 % (0.0-6.0); HEMATOCRIT 32.2 % (34.2-44.1); HEMOGLOBIN 9.7 g/dL (12.0-16.0); LYMPHOCYTES % 14.6 % (18.0-39.1); MEAN CORPUSCULAR HEMOGLOBIN 29.1 pg (28-32); MEAN CORPUSCULAR HGB CONC 30.1 g/dL (31-35); MEAN CORPUSCULAR VOLUME 96.7 fL (81-99); MONOCYTES # (AUTO) 0.6 (0.2-0.8); MONOCYTES % 9.7 % (4.4-11.3); NEUTROPHILS # (AUTO) 4.4 (2.1-6.9); NEUTROPHILS % 66.7 % (38.7-80.0); PLATELET COUNT 186 x10e3/uL (140-360); RED BLOOD COUNT 3.33 x10e6/uL (3.6-5.1); RED CELL DISTRIBUTION WIDTH 15.8 % (11.7-14.4)
[2021-03-01] MEDS ORDERED: DEXAMETHASONE PHOS IV ONE (13:15)
[2021-03-01] MEDS ORDERED: SODIUM CHLORIDE 0.9% IV ONE (13:15)
[2021-03-01 13:27] LABS: ALBUMIN 2.3 g/dL (3.5-5.0); ALBUMIN/GLOBULIN RATIO 0.7 (0.8-2.0); ANION GAP 12.5 mmol/L (8-16); CALCIUM 8.6 mg/dL (8.4-10.2); CREATININE, SERUM 0.59 mg/dL (0.57-1.11); POTASSIUM 3.5 mmol/L (3.5-5.1)
[2021-03-01] MEDS ORDERED: LEVOFLOXACIN 500MG/D5W 100ML 100 ML IV SCH (16:00)
[2021-03-01 16:15] VITALS: BP 168/99
[2021-03-01] MEDS ORDERED: FUROSEMIDE INJ 10 MG/ML 2 ML VIAL IV ONE (16:15)
[2021-03-01 18:25] VITALS: BP 168/99
[2021-03-01] MEDS: ALBUTEROL/IPRATROPIUM 3 ML NEB NEB PRN ×2 (18:30→22:44)
[2021-03-01 20:25] VITALS: BP 165/91
[2021-03-01 20:28] VITALS: BP 136/90
[2021-03-01 20:45] VITALS: BP 136/90
[2021-03-01] MEDS ORDERED: ZOLPIDEM TARTRATE 5 MG TAB PO PRN (21:00)
[2021-03-01] MEDS: MIRTAZAPINE 15 MG TAB PO SCH (22:01)
[2021-03-01 23:52] VITALS: BP 126/78
[2021-03-02] MEDS: METOPROLOL SUCCINATE 25 MG TAB XL PO SCH ×3 (00:34→18:02)
[2021-03-02] MEDS: ASCORBIC ACID 500 MG TAB PO SCH ×3 (00:35→18:02)
[2021-03-02] MEDS: ALBUTEROL/IPRATROPIUM 3 ML NEB NEB PRN ×6 (03:05→23:00)
[2021-03-02 05:11] LABS: BASOPHILS % 0.2 % (0.0-1.0); EOSINOPHILS # (AUTO) 0.2 (0.0-0.4); EOSINOPHILS % 5.7 % (0.0-6.0); HEMATOCRIT 27.4 % (34.2-44.1); HEMOGLOBIN 8.4 g/dL (12.0-16.0); LYMPHOCYTES # (AUTO) 0.9 (1.0-3.2); LYMPHOCYTES % 20.9 % (18.0-39.1); MEAN CORPUSCULAR HEMOGLOBIN 29.4 pg (28-32); MEAN CORPUSCULAR HGB CONC 30.7 g/dL (31-35); MEAN CORPUSCULAR VOLUME 95.8 fL (81-99); MONOCYTES # (AUTO) 0.5 (0.2-0.8); MONOCYTES % 11.5 % (4.4-11.3); NEUTROPHILS # (AUTO) 2.4 (2.1-6.9); NEUTROPHILS % 59.5 % (38.7-80.0); PLATELET COUNT 156 x10e3/uL (140-360); RED BLOOD COUNT 2.86 x10e6/uL (3.6-5.1); RED CELL DISTRIBUTION WIDTH 15.5 % (11.7-14.4)
[2021-03-02 05:16] VITALS: BP 154/94
[2021-03-02 05:51] LABS: ALBUMIN 2.1 g/dL (3.5-5.0); ALBUMIN/GLOBULIN RATIO 0.8 (0.8-2.0); CALCIUM 8.5 mg/dL (8.4-10.2); CREATININE, SERUM 0.56 mg/dL (0.57-1.11)
[2021-03-02 08:06] VITALS: BP 172/91
[2021-03-02] MEDS ORDERED: ASPIRIN 81 MG CHEW TAB PO SCH (09:00)
[2021-03-02] MEDS: SERTRALINE HCL 50 MG TAB PO SCH (09:58)
[2021-03-02] MEDS: PANTOPRAZOLE SOD 40 MG TABEC PO SCH (09:58)
[2021-03-02] MEDS: ZINC SULFATE 220 MG CAP PO SCH (09:58)
[2021-03-02] MEDS ORDERED: POTASSIUM CHLORIDE 20 MEQ TAB CR PO NR (10:00)
[2021-03-02] MEDS: ACETAMINOPHEN 325 MG TAB PO PRN (10:29)
[2021-03-02 12:00] VITALS: BP 147/84
[2021-03-02 16:14] VITALS: BP 152/100
[2021-03-02 20:00] VITALS: BP 133/87
[2021-03-02 20:23] VITALS: BP 133/87
[2021-03-02] MEDS: MIRTAZAPINE 15 MG TAB PO SCH (21:16)
[2021-03-02] MEDS: SIMVASTATIN 40 MG TAB PO SCH (21:16)
[2021-03-02] MEDS: ENOXAPARIN 30 MG/0.3 ML SYR SC SCH (21:16)
[2021-03-03] VITALS (8 sets, daily range): BP systolic 110–165; BP diastolic 65–97
[2021-03-03] MEDS: ALBUTEROL/IPRATROPIUM 3 ML NEB NEB PRN ×7 (03:10→22:20)
[2021-03-03 05:32] LABS: BASOPHILS % 0.2 % (0.0-1.0); EOSINOPHILS # (AUTO) 0.5 (0.0-0.4); EOSINOPHILS % 10.1 % (0.0-6.0); HEMATOCRIT 26.8 % (34.2-44.1); HEMOGLOBIN 8.4 g/dL (12.0-16.0); LYMPHOCYTES # (AUTO) 0.8 (1.0-3.2); MEAN CORPUSCULAR HEMOGLOBIN 29.9 pg (28-32); MEAN CORPUSCULAR HGB CONC 31.3 g/dL (31-35); MEAN CORPUSCULAR VOLUME 95.4 fL (81-99); MONOCYTES # (AUTO) 0.4 (0.2-0.8); NEUTROPHILS # (AUTO) 3.3 (2.1-6.9); NEUTROPHILS % 63.4 % (38.7-80.0); PLATELET COUNT 162 x10e3/uL (140-360); RED BLOOD COUNT 2.81 x10e6/uL (3.6-5.1); RED CELL DISTRIBUTION WIDTH 15.9 % (11.7-14.4)
[2021-03-03 05:53] LABS: ALBUMIN 1.9 g/dL (3.5-5.0); ALBUMIN/GLOBULIN RATIO 0.7 (0.8-2.0); ANION GAP 10.4 mmol/L (8-16); CALCIUM 8.5 mg/dL (8.4-10.2); CREATININE, SERUM 0.55 mg/dL (0.57-1.11); POTASSIUM 3.4 mmol/L (3.5-5.1)
[2021-03-03] MEDS: ASPIRIN 325 MG TAB PO SCH (09:27)
[2021-03-03] MEDS: ZINC SULFATE 220 MG CAP PO SCH (09:28)
[2021-03-03] MEDS: SERTRALINE HCL 50 MG TAB PO SCH (09:28)
[2021-03-03] MEDS: METOPROLOL SUCCINATE 25 MG TAB XL PO SCH ×2 (09:28→17:31)
[2021-03-03] MEDS: ENOXAPARIN 30 MG/0.3 ML SYR SC SCH ×2 (09:28→20:54)
[2021-03-03] MEDS: ASCORBIC ACID 500 MG TAB PO SCH ×2 (09:28→17:31)
[2021-03-03] MEDS: PANTOPRAZOLE SOD 40 MG TABEC PO SCH (09:28)
[2021-03-03] MEDS: BALSAM PERU/CASTOR OIL 60 GM OINT...G. TP SCH (11:50)
[2021-03-03] MEDS ORDERED: POTASSIUM CHLORIDE 20 MEQ TAB CR PO ONE (13:00)
[2021-03-03] MEDS ORDERED: FUROSEMIDE INJ 10 MG/ML 4 ML VIAL IV ONE (13:30)
[2021-03-03] MEDS: ACETAMINOPHEN 325 MG TAB PO PRN (16:30)
[2021-03-03] MEDS: TRAZODONE HCL 50 MG TAB PO SCH (20:53)
[2021-03-03] MEDS: MIRTAZAPINE 15 MG TAB PO SCH (20:53)
[2021-03-03] MEDS: SIMVASTATIN 40 MG TAB PO SCH (20:53)
[2021-03-03] MEDS: MELATONIN 5 MG TABLET PO SCH (20:53)
[2021-03-04] VITALS (8 sets, daily range): BP systolic 117–159; BP diastolic 75–92
[2021-03-04] MEDS: ALBUTEROL/IPRATROPIUM 3 ML NEB NEB PRN ×7 (02:25→22:40)
[2021-03-04 05:14] LABS: BASOPHILS % 0.2 % (0.0-1.0); EOSINOPHILS # (AUTO) 0.5 (0.0-0.4); EOSINOPHILS % 9.7 % (0.0-6.0); HEMATOCRIT 28.3 % (34.2-44.1); HEMOGLOBIN 8.4 g/dL (12.0-16.0); LYMPHOCYTES % 20.2 % (18.0-39.1); MEAN CORPUSCULAR HEMOGLOBIN 29.4 pg (28-32); MEAN CORPUSCULAR HGB CONC 29.7 g/dL (31-35); MONOCYTES # (AUTO) 0.3 (0.2-0.8); MONOCYTES % 7.1 % (4.4-11.3); NEUTROPHILS # (AUTO) 2.9 (2.1-6.9); NEUTROPHILS % 60.7 % (38.7-80.0); PLATELET COUNT 144 x10e3/uL (140-360); RED BLOOD COUNT 2.86 x10e6/uL (3.6-5.1); RED CELL DISTRIBUTION WIDTH 16.2 % (11.7-14.4)
[2021-03-04 05:54] LABS: ALBUMIN 2.1 g/dL (3.5-5.0); ALBUMIN/GLOBULIN RATIO 0.8 (0.8-2.0); ANION GAP 8.8 mmol/L (8-16); CREATININE, SERUM 0.57 mg/dL (0.57-1.11); POTASSIUM 3.8 mmol/L (3.5-5.1)
[2021-03-04] MEDS: PANTOPRAZOLE SOD 40 MG TABEC PO SCH (09:04)
[2021-03-04] MEDS: ASPIRIN 325 MG TAB PO SCH (09:04)
[2021-03-04] MEDS: METOPROLOL SUCCINATE 25 MG TAB XL PO SCH ×2 (09:04→17:22)
[2021-03-04] MEDS: ZINC SULFATE 220 MG CAP PO SCH (09:05)
[2021-03-04] MEDS: ASCORBIC ACID 500 MG TAB PO SCH ×2 (09:05→17:22)
[2021-03-04] MEDS: BALSAM PERU/CASTOR OIL 60 GM OINT...G. TP SCH (09:05)
[2021-03-04] MEDS: ENOXAPARIN 30 MG/0.3 ML SYR SC SCH ×2 (09:05→20:20)
[2021-03-04] MEDS: SERTRALINE HCL 50 MG TAB PO SCH (09:05)
[2021-03-04] MEDS: HYDROCODONE/APAP 5MG-325MG TAB PO PRN (20:20)
[2021-03-04] MEDS: MELATONIN 5 MG TABLET PO SCH (20:20)
[2021-03-04] MEDS: TRAZODONE HCL 50 MG TAB PO SCH (20:20)
[2021-03-04] MEDS: SIMVASTATIN 40 MG TAB PO SCH (20:20)
[2021-03-04] MEDS: MIRTAZAPINE 15 MG TAB PO SCH (20:20)
[2021-03-05] VITALS: BP 147/86
[2021-03-05] MEDS: ALBUTEROL/IPRATROPIUM 3 ML NEB NEB PRN ×4 (02:25→11:40)
[2021-03-05 04:00] VITALS: BP 144/80
[2021-03-05 05:37] LABS: BASOPHILS % 0.2 % (0.0-1.0); EOSINOPHILS # (AUTO) 0.5 (0.0-0.4); EOSINOPHILS % 11.1 % (0.0-6.0); LYMPHOCYTES # (AUTO) 0.8 (1.0-3.2); LYMPHOCYTES % 18.4 % (18.0-39.1); MEAN CORPUSCULAR HEMOGLOBIN 29.6 pg (28-32); MEAN CORPUSCULAR HGB CONC 30.4 g/dL (31-35); MEAN CORPUSCULAR VOLUME 97.4 fL (81-99); MONOCYTES # (AUTO) 0.3 (0.2-0.8); MONOCYTES % 6.8 % (4.4-11.3); NEUTROPHILS # (AUTO) 2.6 (2.1-6.9); NEUTROPHILS % 60.7 % (38.7-80.0); PLATELET COUNT 152 x10e3/uL (140-360); RED BLOOD COUNT 2.67 x10e6/uL (3.6-5.1); RED CELL DISTRIBUTION WIDTH 16.1 % (11.7-14.4)
[2021-03-05 05:42] LABS: HEMOGLOBIN 7.9 g/dL (12.0-16.0)
[2021-03-05 05:50] LABS: ANION GAP 8.7 mmol/L (8-16); CREATININE, SERUM 0.59 mg/dL (0.57-1.11); POTASSIUM 3.7 mmol/L (3.5-5.1)
[2021-03-05 08:00] VITALS: BP 173/88
[2021-03-05 08:04] VITALS: BP 173/88
[2021-03-05] MEDS: ASPIRIN 325 MG TAB PO SCH (08:54)
[2021-03-05] MEDS: PANTOPRAZOLE SOD 40 MG TABEC PO SCH (08:54)
[2021-03-05] MEDS: METOPROLOL SUCCINATE 25 MG TAB XL PO SCH (08:54)
[2021-03-05] MEDS: ZINC SULFATE 220 MG CAP PO SCH (08:55)
[2021-03-05] MEDS: ENOXAPARIN 30 MG/0.3 ML SYR SC SCH (08:55)
[2021-03-05] MEDS: BALSAM PERU/CASTOR OIL 60 GM OINT...G. TP SCH (08:55)
[2021-03-05] MEDS: SERTRALINE HCL 50 MG TAB PO SCH (08:55)
[2021-03-05] MEDS: ASCORBIC ACID 500 MG TAB PO SCH (08:55)
[2021-03-05] MEDS: HYDROCODONE/APAP 5MG-325MG TAB PO PRN (08:57)
[2021-03-05 12:00] VITALS: BP 134/82
[2021-03-05] MEDS ORDERED: ARTIFICIAL TEARS (OPTH) 15 ML BTL OS SCH (13:00)
[2021-03-05] MEDS: ALBUTEROL/IPRATROPIUM 3 ML NEB NEB SCH ×2 (13:55→16:26)
[2021-03-05] MEDS ORDERED: VENELEX OINTMEN60 GM TOP (14:01)
[2021-03-05] MEDS ORDERED: TRAZODONE HCL50 MG PO (14:02)
[2021-03-05] MEDS ORDERED: MELATONIN3 MG PO (14:02)
[2021-03-05] MEDS ORDERED: ARTIFICIAL TEAR15 M6 OS (14:03)
[2021-03-05] MEDS ORDERED: ALBUTEROL0.63 MG/3 NEB (14:10)
[2021-03-05 16:00] VITALS: BP 142/85
== END 2021-03-05 17:30 | DRG 189 ==
LOC: ER 12:54 → ERHOLD 14:46 → MED/SURG3 15:55 → OBSVTOIN 03-03 13:25
PROVIDERS: ADMIT Internal Medicine; ATTEND Internal Medicine
DX: J96.21 Acute and chronic respiratory failure with hypoxia (principal); I50.33 Acute on chronic diastolic (congestive) heart failure; J44.1 Chronic obstructive pulmonary disease with (acute) exacerbation; E44.0 Moderate protein-calorie malnutrition; Z68.1 Body mass index [BMI] 19.9 or less, adult; I25.10 Atherosclerotic heart disease of native coronary artery without angina pectoris; Z95.5 Presence of coronary angioplasty implant and graft; F41.9 Anxiety disorder, unspecified; F32.A Depression, unspecified; D64.9 Anemia, unspecified; E78.5 Hyperlipidemia, unspecified; I71.4 Abdominal aortic aneurysm, without rupture; G47.00 Insomnia, unspecified; I70.0 Atherosclerosis of aorta; I48.0 Paroxysmal atrial fibrillation; Z79.01 Long term (current) use of anticoagulants; B30.3 Acute epidemic hemorrhagic conjunctivitis (enteroviral); L89.152 Pressure ulcer of sacral region, stage 2; R62.7 Adult failure to thrive; Z99.81 Dependence on supplemental oxygen; Z88.0 Allergy status to penicillin; Z74.09 Other reduced mobility; U09.9 Post COVID-19 condition, unspecified; I11.0 Hypertensive heart disease with heart failure
CPT/HCPCS: 36415; 71045; 80048; 80053; 83880; 84484; 85025; 93005; 94640; 94799; 97139; 99251; 99285; G0378; J1100; J1650; J1940; J1956; U0002